=== PATIENT | female | born 1970 | race Hispanic/Latino ===

== ENCOUNTER 2022-04-06 15:13 | Inpatient (IN) | payer MEDICAID, OTHER ==
[~2022-04-06] VITALS: Ht 157.5 cm; Wt 149.1 kg
[2022-04-06] MEDS ORDERED: KETOROLAC 15MG/ML VIAL (15MG/ML) IV ONE (17:00)
[2022-04-06] MEDS ORDERED: 0.9%NACL 1000ML 1,000 ML IV ONE (17:00)
[2022-04-06] MEDS ORDERED: ONDANSETRON 4MG INJ IVP ONE (17:00)
[2022-04-06 17:03] LABS: APPEARANCE,URINE CLEAR (CLEAR); BILIRUBIN,URINE NEGATIVE (NEGATIVE); COLOR,URINE YELLOW (YELLOW); GLUCOSE, URINE (UA) NEGATIVE (NEGATIVE); KETONES,URINE NEGATIVE (NEGATIVE); LEUKOCYTE ESTERASE ,URINE 25 Leu/uL (NEGATIVE); NITRATE,URINE NEGATIVE (NEGATIVE); OCCULT BLOOD,URINE MODERATE (NEGATIVE); PROTEIN,URINE 50 mg/dL (NEGATIVE); UROBILINOGEN,URINE 0.2 mg/dL (0.2-1.0)
[2022-04-06 17:08] LABS: BACTERIA,URINE RARE /HPF (None Seen); MUCUS,URINE RARE LPF (None Seen); SQUAMOUS EPITHELIAL CELL,UR MOD /HPF (0-2)
[2022-04-06 17:09] LABS: BASOPHILS % (AUTO) 0.7 % (0.0-5.0); EOSINOPHILS % (AUTO) 1.9 % (0.0-8.0); HEMATOCRIT 31.9 % (36-48); MEAN CORPUSCULAR HEMOGLOBIN 21.3 pg (27.0-33.0); MEAN CORPUSCULAR HGB CONC 28.8 g/dL (32.0-36.0); MONOCYTES % (AUTO) 6.7 % (3.0-13.0); NEUTROPHILS % (AUTO) 64.2 % (40.0-77.0); PLATELET COUNT (AUTO) 614 K/uL (130-400); RED BLOOD CELL COUNT(AUTO) 4.31 MIL/uL (4.00-5.50); RED CELL DISTRIBUTION WIDTH 19.3 % (11.0-15.5); WHITE BLOOD COUNT (AUTO) 13.3 K/uL (4.8-10.8)
[2022-04-06 17:18] LABS: CREATININE 0.9 mg/dL (0.5-1.5); POTASSIUM 3.2 mmol/L (3.5-5.1)
[2022-04-06] MEDS ORDERED: CEFTRIAXONE 1G VIAL ONE (17:21)
[2022-04-06 17:22] LABS: ALBUMIN 3.3 g/dL (3.5-5.0)
[2022-04-06] MEDS ORDERED: CEFTRIAXONE 1G VIAL IVP ONE (17:30)
[2022-04-06 18:00] LABS: CRP QUANTITATIVE 64.5 mg/L (0.00-9.0)
[2022-04-06] MEDS ORDERED: IOHEXOL 350 MG/ML 100ML INFUS..BTL IV ONE (18:19)
[2022-04-06] MEDS ORDERED: ONDANSETRON 4MG INJ IV PRN (21:30)
[2022-04-06] MEDS ORDERED: ACETAMINOPHEN 325 MG TAB PO PRN (21:30)
[2022-04-06] MEDS ORDERED: LACTULOSE 20 GM/30 ML UDCUP PO PRN (21:30)
[2022-04-06] MEDS: CEFTRIAXONE 1G VIAL IVP SCH (21:43)
[2022-04-06] MEDS: 0.9%NACL 1000ML 1,000 ML IV SCH (21:44)
[2022-04-06] MEDS ORDERED: LIDOCAINE HCL-MPF 1% 2ML VIAL IV PRN (22:00)
[2022-04-06] MEDS ORDERED: POTASSIUM CHLORIDE 10MEQ/100ML 100 ML IV PRN (22:00)
[2022-04-06] MEDS ORDERED: POTASSIUM CHLORIDE 10% ELIXIR 20 MEQ/15 ML UDCUP PO PRN (22:00)
[2022-04-06] MEDS: KCL 20 MEQ ERTAB PO PRN (22:08)
[2022-04-06] MEDS: ACETAMINOPHEN 325 MG TAB PO PRN (22:09)
[2022-04-06 23:59] VITALS: BP 142/63
[2022-04-07] MEDS: KCL 20 MEQ ERTAB PO PRN ×2 (00:28→02:36)
[2022-04-07] MEDS ORDERED: FLU VACC QS2022-23(6MOS UP)/PF 60 MCG/0.5 ML ML IM ONE (02:30)
[2022-04-07 02:40] VITALS: BP 138/82
[2022-04-07] MEDS: ACETAMINOPHEN 325 MG TAB PO PRN (05:18)
[2022-04-07 07:49] VITALS: BP 139/74
[2022-04-07] MEDS ORDERED: GADOTERATE MEGLUMINE 10 MMOL/20 ML VIAL IV ONE (08:01)
[2022-04-07] MEDS: FAMOTIDINE 20MG TAB PO SCH ×2 (08:34→21:32)
[2022-04-07 11:06] LABS: HEMATOCRIT 31.3 % (36-48); MEAN CORPUSCULAR HGB CONC 27.8 g/dL (32.0-36.0); MEAN CORPUSCULAR VOLUME 75.6 fL (79-99); RED BLOOD CELL COUNT(AUTO) 4.14 MIL/uL (4.00-5.50); RED CELL DISTRIBUTION WIDTH 19.4 % (11.0-15.5); WHITE BLOOD COUNT (AUTO) 8.9 K/uL (4.8-10.8)
[2022-04-07 11:14] VITALS: BP 132/84
[2022-04-07] MEDS: 0.9%NACL 1000ML 1,000 ML IV SCH (11:20)
[2022-04-07 11:28] LABS: CREATININE 0.8 mg/dL (0.5-1.5); POTASSIUM 3.6 mmol/L (3.5-5.1)
[2022-04-07 11:33] LABS: TOTAL PROTEIN, SERUM 7.3 g/dL (6.0-8.3)
[2022-04-07] MEDS ORDERED: HYDROMORPHONE 1 MG INJ IVP ONE (15:00)
[2022-04-07] MEDS ORDERED: HYDROMORPHONE 1 MG INJ IVP PRN (15:00)
[2022-04-07] MEDS: HYDROMORPHONE 1 MG INJ IVP PRN (15:52)
[2022-04-07 16:15] VITALS: BP 130/76
[2022-04-07 20:00] VITALS: BP 157/75
[2022-04-07] MEDS: CEFTRIAXONE 1G VIAL IVP SCH (21:32)
[2022-04-07 23:19] VITALS: BP 127/66
[2022-04-08 03:02] VITALS: BP 131/83
[2022-04-08] MEDS: 0.9%NACL 1000ML 1,000 ML IV SCH ×2 (03:53→18:03)
[2022-04-08 05:50] LABS: HEMATOCRIT 29.9 % (36-48); MEAN CORPUSCULAR HEMOGLOBIN 21.4 pg (27.0-33.0); MEAN CORPUSCULAR HGB CONC 28.8 g/dL (32.0-36.0); MEAN CORPUSCULAR VOLUME 74.6 fL (79-99); RED BLOOD CELL COUNT(AUTO) 4.01 MIL/uL (4.00-5.50); RED CELL DISTRIBUTION WIDTH 19.2 % (11.0-15.5); WHITE BLOOD COUNT (AUTO) 8.1 K/uL (4.8-10.8)
[2022-04-08 06:05] LABS: INR 1.06 (0.85-1.15); PROTHROMBIN TIME 11.5 SEC (9.6-11.6)
[2022-04-08 06:06] LABS: PARTIAL THROMBOPLASTIN TIME 27.7 SEC (26.3-35.5)
[2022-04-08 06:16] LABS: ALBUMIN 2.7 g/dL (3.5-5.0); BILIRUBIN,DIRECT 0.1 mg/dL (0.0-0.3); CREATININE 0.8 mg/dL (0.5-1.5); CRP QUANTITATIVE 63.9 mg/L (0.00-9.0); POTASSIUM 3.4 mmol/L (3.5-5.1); THYROID STIMULATING HORMONE 1.84 uIU/mL (0.36-3.74); TOTAL PROTEIN, SERUM 6.8 g/dL (6.0-8.3)
[2022-04-08 06:44] VITALS: BP 132/62
[2022-04-08] MEDS: FAMOTIDINE 20MG TAB PO SCH (08:31)
[2022-04-08] MEDS: HYDROMORPHONE 1 MG INJ IVP PRN ×2 (09:26→18:23)
[2022-04-08 12:00] VITALS: BP 144/74
[2022-04-08 16:00] VITALS: BP 150/67
[2022-04-08] MEDS: KCL 20 MEQ ERTAB PO PRN ×2 (16:15→18:03)
[2022-04-08] MEDS: PANTOPRAZOLE 40 MG TAB DR PO SCH (18:03)
[2022-04-08] MEDS: CEFTRIAXONE 1G VIAL IVP SCH (19:44)
[2022-04-08 20:13] VITALS: BP 146/70
[2022-04-08 23:51] VITALS: BP 153/73
[2022-04-09] MEDS: 0.9%NACL 1000ML 1,000 ML IV SCH ×2 (03:20→17:24)
[2022-04-09 04:22] VITALS: BP 144/83
[2022-04-09 07:30] VITALS: BP 134/68
[2022-04-09 09:40] LABS: RETICULOCYTE % (AUTO) 2.05 % (0.42-2.23)
[2022-04-09 10:31] LABS: % IRON SATURATION 5.6 % (22-44)
[2022-04-09] MEDS: KETOROLAC 15MG/ML VIAL (15MG/ML) IV PRN ×3 (10:45→21:41)
[2022-04-09 11:30] VITALS: BP 140/65
[2022-04-09 16:00] VITALS: BP 165/74
[2022-04-09] MEDS: PANTOPRAZOLE 40 MG TAB DR PO SCH (17:24)
[2022-04-09] MEDS: CEFTRIAXONE 1G VIAL IVP SCH (19:21)
[2022-04-09 20:00] VITALS: BP 153/73
[2022-04-10] VITALS: BP 142/63
[2022-04-10 04:00] VITALS: BP 144/73
[2022-04-10 05:15] LABS: BASOPHILS % (AUTO) 0.5 % (0.0-5.0); EOSINOPHILS % (AUTO) 2.2 % (0.0-8.0); HEMATOCRIT 29.8 % (36-48); LYMPHOCYTES % (AUTO) 20.6 % (21.0-51.0); MEAN CORPUSCULAR HEMOGLOBIN 21.1 pg (27.0-33.0); MEAN CORPUSCULAR HGB CONC 28.5 g/dL (32.0-36.0); MEAN CORPUSCULAR VOLUME 74.1 fL (79-99); MONOCYTES % (AUTO) 8.7 % (3.0-13.0); NEUTROPHILS % (AUTO) 67.7 % (40.0-77.0); PLATELET COUNT (AUTO) 475 K/uL (130-400); RED BLOOD CELL COUNT(AUTO) 4.02 MIL/uL (4.00-5.50); RED CELL DISTRIBUTION WIDTH 19.4 % (11.0-15.5); WHITE BLOOD COUNT (AUTO) 9.4 K/uL (4.8-10.8)
[2022-04-10] MEDS: 0.9%NACL 1000ML 1,000 ML IV SCH ×2 (05:27→20:48)
[2022-04-10 05:31] LABS: ALBUMIN 2.7 g/dL (3.5-5.0); CREATININE 0.8 mg/dL (0.5-1.5); POTASSIUM 3.5 mmol/L (3.5-5.1)
[2022-04-10 07:30] VITALS: BP 129/61
[2022-04-10 11:00] VITALS: BP 125/65
[2022-04-10] MEDS: KETOROLAC 15MG/ML VIAL (15MG/ML) IV PRN ×2 (12:37→20:48)
[2022-04-10 16:00] VITALS: BP 146/60
[2022-04-10] MEDS: PANTOPRAZOLE 40 MG TAB DR PO SCH (18:13)
[2022-04-10] MEDS: ACETAMINOPHEN 325 MG TAB PO PRN (18:34)
[2022-04-10 20:20] VITALS: BP 147/72
[2022-04-10] MEDS: CEFTRIAXONE 1G VIAL IVP SCH (20:48)
[2022-04-11] VITALS: BP 151/71
[2022-04-11 04:52] LABS: HEMATOCRIT 28.7 % (36-48); MEAN CORPUSCULAR HEMOGLOBIN 21.4 pg (27.0-33.0); MEAN CORPUSCULAR HGB CONC 28.9 g/dL (32.0-36.0); RED BLOOD CELL COUNT(AUTO) 3.88 MIL/uL (4.00-5.50); RED CELL DISTRIBUTION WIDTH 19.4 % (11.0-15.5); WHITE BLOOD COUNT (AUTO) 8.7 K/uL (4.8-10.8)
[2022-04-11 05:07] LABS: CREATININE 0.9 mg/dL (0.5-1.5); POTASSIUM 3.4 mmol/L (3.5-5.1)
[2022-04-11] MEDS: KCL 20 MEQ ERTAB PO PRN ×2 (05:49→09:07)
[2022-04-11 06:00] VITALS: BP 126/56
[2022-04-11 07:30] VITALS: BP 150/69
[2022-04-11] MEDS: 0.9%NACL 1000ML 1,000 ML IV SCH ×2 (08:40→20:49)
[2022-04-11] MEDS: HYDROMORPHONE 0.5 MG SYG (0.5MG/0.5ML) IVP PRN (09:08)
[2022-04-11 11:00] VITALS: BP 148/66
[2022-04-11 16:00] VITALS: BP 148/78
[2022-04-11] MEDS: PANTOPRAZOLE 40 MG TAB DR PO SCH (18:00)
[2022-04-11 20:00] VITALS: BP 143/78
[2022-04-11] MEDS: CEFTRIAXONE 1G VIAL IVP SCH (20:47)
[2022-04-12] VITALS (14 sets, daily range): BP systolic 134–162; BP diastolic 64–87
[2022-04-12 08:07] LABS: CREATININE 0.9 mg/dL (0.5-1.5); POTASSIUM 3.2 mmol/L (3.5-5.1)
[2022-04-12] MEDS: KETOROLAC 15MG/ML VIAL (15MG/ML) IV PRN ×2 (08:45→17:33)
[2022-04-12] MEDS ORDERED: FENTANYL CITRATE PF 50 MCG/1 ML 2ML VIAL ONE (10:52)
[2022-04-12] MEDS ORDERED: MIDAZOLAM HCL 1 MG/ML 2ML VIAL ONE (11:11)
[2022-04-12] MEDS: PANTOPRAZOLE 40 MG TAB DR PO SCH (17:26)
[2022-04-12] MEDS: KCL 20 MEQ ERTAB PO PRN ×2 (17:33→18:53)
[2022-04-12] MEDS: 0.9%NACL 1000ML 1,000 ML IV SCH (18:53)
[2022-04-12] MEDS: CEFTRIAXONE 1G VIAL IVP SCH (20:43)
[2022-04-12] MEDS: HYDROMORPHONE 0.5 MG SYG (0.5MG/0.5ML) IVP PRN (21:01)
[2022-04-13] MEDS: KETOROLAC 15MG/ML VIAL (15MG/ML) IV PRN (00:39)
[2022-04-13] MEDS: 0.9%NACL 1000ML 1,000 ML IV SCH ×2 (00:40→14:04)
[2022-04-13] MEDS: HYDROMORPHONE 0.5 MG SYG (0.5MG/0.5ML) IVP PRN ×4 (02:30→22:47)
[2022-04-13 04:25] VITALS: BP 135/74
[2022-04-13 05:32] LABS: CREATININE 0.9 mg/dL (0.5-1.5); POTASSIUM 3.8 mmol/L (3.5-5.1)
[2022-04-13 08:00] VITALS: BP 165/102
[2022-04-13] MEDS ORDERED: ACET-2079 PO (08:37)
[2022-04-13 12:00] VITALS: BP 151/72
[2022-04-13 16:00] VITALS: BP 163/97
[2022-04-13 20:58] VITALS: BP 148/60
[2022-04-13] MEDS: PANTOPRAZOLE 40 MG TAB DR PO SCH (21:03)
[2022-04-13] MEDS: CEFTRIAXONE 1G VIAL IVP SCH (21:53)
[2022-04-14 00:15] VITALS: BP 139/77
[2022-04-14 03:57] VITALS: BP 152/66
[2022-04-14] MEDS: 0.9%NACL 1000ML 1,000 ML IV SCH (05:10)
[2022-04-14 08:00] VITALS: BP 158/78
== END 2022-04-14 11:20 | disposition home or self-care (01) | DRG 687 ==
LOC: EDH 15:13 → EDHIP 15:14 → WSH 23:40 → 3BH 04-08 09:53
PROVIDERS: ADMIT Hospitalist; ATTEND Hospitalist
PROC: 0TB03ZX Excision of Right Kidney, Percutaneous Approach, Diagnostic (ICD-10-PCS; principal; 2022-04-12)
DX: C64.9 Malignant neoplasm of unspecified kidney, except renal pelvis (principal); C78.00 Secondary malignant neoplasm of unspecified lung; I82.3 Embolism and thrombosis of renal vein; N39.0 Urinary tract infection, site not specified; Z68.43 Body mass index [BMI] 50.0-59.9, adult; E87.6 Hypokalemia; E66.01 Morbid (severe) obesity due to excess calories; R16.0 Hepatomegaly, not elsewhere classified; D64.9 Anemia, unspecified; G47.33 Obstructive sleep apnea (adult) (pediatric); G89.29 Other chronic pain
CPT/HCPCS: 36415; 50200; 71250; 74177; 77012; 78306; 80048; 80053; 80076; 81001; 82607; 82728; 82746; 83540; 83550; 83605; 83690; 84132; 84145; 84443; 85025; 85027; 85045; 85610; 85651; 85730; 86140; 87088; 87635; 93306; 93356; 99152; A9503; C8902; G0378; J0696; J1170; J1885; J2250; J2405; J3010; J7030; Q9967

== ENCOUNTER 2022-06-01 21:40 | Emergency (ER) | payer OTHER ==
[~2022-06-01] VITALS: Ht 160 cm; Wt 117.0 kg
[~2022-06-01 21:40] MED LIST: ACET-2079 PO
[2022-06-01 23:02] LABS: BASOPHILS % (AUTO) 0.7 % (0.0-5.0); EOSINOPHILS % (AUTO) 2.7 % (0.0-8.0); HEMATOCRIT 31.9 % (36-48); LYMPHOCYTES % (AUTO) 20.9 % (21.0-51.0); MEAN CORPUSCULAR HEMOGLOBIN 21.1 pg (27.0-33.0); MEAN CORPUSCULAR HGB CONC 28.2 g/dL (32.0-36.0); MEAN CORPUSCULAR VOLUME 74.7 fL (79-99); MONOCYTES % (AUTO) 5.9 % (3.0-13.0); NEUTROPHILS % (AUTO) 69.4 % (40.0-77.0); PLATELET COUNT (AUTO) 554 K/uL (130-400); RED BLOOD CELL COUNT(AUTO) 4.27 MIL/uL (4.00-5.50); RED CELL DISTRIBUTION WIDTH 19.4 % (11.0-15.5); WHITE BLOOD COUNT (AUTO) 8.5 K/uL (4.8-10.8)
[2022-06-01 23:15] LABS: POTASSIUM 3.7 mmol/L (3.5-5.1); TOTAL PROTEIN, SERUM 8.1 g/dL (6.0-8.3)
[2022-06-01 23:21] LABS: APPEARANCE,URINE CLEAR (CLEAR); BILIRUBIN,URINE NEGATIVE (NEGATIVE); GLUCOSE, URINE (UA) NEGATIVE (NEGATIVE); KETONES,URINE NEGATIVE (NEGATIVE); LEUKOCYTE ESTERASE ,URINE 25 Leu/uL (NEGATIVE); NITRATE,URINE NEGATIVE (NEGATIVE); OCCULT BLOOD,URINE NEGATIVE (NEGATIVE); PH,URINE 6.5 (5.0-8.0); PROTEIN,URINE NEGATIVE (NEGATIVE); UROBILINOGEN,URINE 0.2 mg/dL (0.2-1.0)
[2022-06-01 23:26] LABS: COLOR,URINE YELLOW (YELLOW)
[2022-06-01 23:27] LABS: BACTERIA,URINE RARE /HPF (None Seen); RBC,URINE 0-1 /HPF (0-1); SQUAMOUS EPITHELIAL CELL,UR FEW /HPF (0-2)
[2022-06-01] MEDS ORDERED: IOHEXOL 350 MG/ML 100ML INFUS..BTL IV ONE (23:54)
[2022-06-02] MEDS ORDERED: MORPHINE 4 MG SYG IVP STA (01:40)
[2022-06-02] MEDS ORDERED: MORPHINE 2 MG SYG ONE (01:52)
[2022-06-02] MEDS ORDERED: CEPH500B PO (02:09)
[2022-06-02 02:27] VITALS: BP 149/86
== END 2022-06-02 02:31 | disposition home or self-care (01) ==
LOC: EDH 21:40
DX: N39.0 Urinary tract infection, site not specified (principal); N28.89 Other specified disorders of kidney and ureter; I10 Essential (primary) hypertension; Z98.51 Tubal ligation status
CPT/HCPCS: 99285; 74178; 80053; 85025; 81001; 36415; 96374; Q9967

== ENCOUNTER 2022-08-02 20:24 | Emergency (ER) | payer BC, OTHER ==
[~2022-08-02] VITALS: Ht 162.6 cm; Wt 103.4 kg
[~2022-08-02 20:24] MED LIST changes: +CEPH500B PO; +LACT10SO9 PO
[2022-08-02 21:29] LABS: BASOPHILS % (AUTO) 0.8 % (0.0-5.0); EOSINOPHILS % (AUTO) 19.4 % (0.0-8.0); HEMATOCRIT 39.4 % (36-48); LYMPHOCYTES % (AUTO) 21.2 % (21.0-51.0); MEAN CORPUSCULAR HEMOGLOBIN 22.8 pg (27.0-33.0); MEAN CORPUSCULAR HGB CONC 29.9 g/dL (32.0-36.0); MEAN CORPUSCULAR VOLUME 76.2 fL (79-99); MONOCYTES % (AUTO) 8.7 % (3.0-13.0); NEUTROPHILS % (AUTO) 49.6 % (40.0-77.0); PLATELET COUNT (AUTO) 346 K/uL (130-400); RED BLOOD CELL COUNT(AUTO) 5.17 MIL/uL (4.00-5.50); RED CELL DISTRIBUTION WIDTH 19.5 % (11.0-15.5); WHITE BLOOD COUNT (AUTO) 7.9 K/uL (4.8-10.8)
[2022-08-02 21:40] LABS: CARBON DIOXIDE 30 mmol/L (21-32); CHLORIDE 100 mmol/L (101-111); CREATININE 1.3 mg/dL (0.5-1.5); GLOMERULAR FILTR. RATE CALC 46 mL/min (>60); GLUCOSE,RANDOM 94 mg/dL (70-105); POTASSIUM 3.2 mmol/L (3.5-5.1); SODIUM SERUM 139 mmol/L (136-145); UREA NITROGEN, BLOOD 19 mg/dL (7-18)
[2022-08-02 21:44] LABS: ALANINE AMINOTRANSFERASE 111 U/L (12-78); ALBUMIN 3.7 g/dL (3.5-5.0); ASPARTATE AMINOTRANSFERASE 94 U/L (10-37); TOTAL PROTEIN, SERUM 7.6 g/dL (6.0-8.3)
[2022-08-02 21:45] LABS: LIPASE < 50 U/L (114-286)
[2022-08-02 21:53] LABS: APPEARANCE,URINE CLOUDY (CLEAR); BILIRUBIN,URINE NEGATIVE (NEGATIVE); COLOR,URINE YELLOW (YELLOW); GLUCOSE, URINE (UA) NEGATIVE (NEGATIVE); KETONES,URINE NEGATIVE (NEGATIVE); LEUKOCYTE ESTERASE ,URINE 500 Leu/uL (NEGATIVE); NITRATE,URINE NEGATIVE (NEGATIVE); PH,URINE 7.5 (5.0-8.0); PROTEIN,URINE 50 mg/dL (NEGATIVE); UROBILINOGEN,URINE 0.2 mg/dL (0.2-1.0)
[2022-08-02 22:02] LABS: BACTERIA,URINE FEW /HPF (None Seen); MUCUS,URINE FEW LPF (None Seen); SQUAMOUS EPITHELIAL CELL,UR MOD /HPF (0-2); WBC,URINE 26-50 /HPF (0-1); YEAST,URINE BUDDING FEW /HPF (None Seen)
[2022-08-02] MEDS ORDERED: MORPHINE 2 MG SYG IVP ONE (22:30)
[2022-08-02] MEDS ORDERED: MORPHINE 2 MG SYG IM ONE (23:00)
[2022-08-02] MEDS ORDERED: POTASSIUM BICARB/CIT AC 25 MEQ TABLET.EFF PO ONE (23:00)
[2022-08-03] MEDS ORDERED: OMEP20TA20 PO (00:58)
[2022-08-03] MEDS ORDERED: SULF1TAB42 PO (00:58)
[2022-08-03 01:15] VITALS: BP 156/87
== END 2022-08-03 01:16 | disposition home or self-care (01) ==
LOC: EDH 20:24
DX: N39.0 Urinary tract infection, site not specified (principal); R10.11 Right upper quadrant pain; K82.8 Other specified diseases of gallbladder; I10 Essential (primary) hypertension; Z79.899 Other long term (current) drug therapy
CPT/HCPCS: 36415; 74176; 76705; 80053; 81001; 83690; 84703; 85025; 87077; 87088; 87186; 96372

== ENCOUNTER 2022-11-06 16:05 | Emergency (ER) | payer BC ==
[~2022-11-06] VITALS: Ht 160 cm; Wt 98.9 kg
[~2022-11-06 16:05] MED LIST changes: +OMEP20TA20 PO; +SULF1TAB42 PO
[2022-11-06 16:07] VITALS: BP 165/76
[2022-11-06] MEDS ORDERED: ONDANSETRON 4MG INJ IV ONE (16:30)
[2022-11-06] MEDS ORDERED: MORPHINE 4 MG SYG IVP ONE (16:30)
[2022-11-06 16:37] LABS: BASOPHILS % (AUTO) 0.3 % (0.0-5.0); EOSINOPHILS % (AUTO) 1.4 % (0.0-8.0); HEMATOCRIT 40.8 % (36-48); LYMPHOCYTES % (AUTO) 16.4 % (21.0-51.0); MEAN CORPUSCULAR HEMOGLOBIN 27.1 pg (27.0-33.0); MEAN CORPUSCULAR HGB CONC 32.1 g/dL (32.0-36.0); MEAN CORPUSCULAR VOLUME 84.3 fL (79-99); MONOCYTES % (AUTO) 6.1 % (3.0-13.0); NEUTROPHILS % (AUTO) 75.4 % (40.0-77.0); PLATELET COUNT (AUTO) 223 K/uL (130-400); RED BLOOD CELL COUNT(AUTO) 4.84 MIL/uL (4.00-5.50); RED CELL DISTRIBUTION WIDTH 19.6 % (11.0-15.5); WHITE BLOOD COUNT (AUTO) 10.2 K/uL (4.8-10.8)
[2022-11-06 16:58] LABS: CREATININE 1.2 mg/dL (0.5-1.5); POTASSIUM 3.4 mmol/L (3.5-5.1)
[2022-11-06 17:04] LABS: ALBUMIN 3.6 g/dL (3.5-5.0); TOTAL PROTEIN, SERUM 7.5 g/dL (6.0-8.3)
[2022-11-06 17:30] LABS: APPEARANCE,URINE CLEAR (CLEAR); BACTERIA,URINE RARE /HPF (None Seen); BILIRUBIN,URINE NEGATIVE (NEGATIVE); COLOR,URINE YELLOW (YELLOW); GLUCOSE, URINE (UA) NEGATIVE (NEGATIVE); KETONES,URINE NEGATIVE (NEGATIVE); LEUKOCYTE ESTERASE ,URINE 75 Leu/uL (NEGATIVE); MUCUS,URINE RARE LPF (None Seen); NITRATE,URINE NEGATIVE (NEGATIVE); OCCULT BLOOD,URINE NEGATIVE (NEGATIVE); PH,URINE 6.5 (5.0-8.0); PROTEIN,URINE 200 mg/dL (NEGATIVE); SQUAMOUS EPITHELIAL CELL,UR RARE /HPF (0-2)
[2022-11-06] MEDS ORDERED: IOHEXOL 350 MG/ML 100ML INFUS..BTL IV ONE (17:30)
[2022-11-06] MEDS ORDERED: NAPR-1180 PO (18:31)
[2022-11-06] MEDS ORDERED: CYCL10TA16 PO (18:31)
== END 2022-11-06 18:46 | disposition home or self-care (01) ==
LOC: EDH 16:05
DX: S33.5XXA Sprain of ligaments of lumbar spine, initial encounter (principal); I10 Essential (primary) hypertension; Z79.899 Other long term (current) drug therapy; Z98.890 Other specified postprocedural states; W18.39XA Other fall on same level, initial encounter; Y93.89 Activity, other specified; Y92.89 Other specified places as the place of occurrence of the external cause; Y99.8 Other external cause status
CPT/HCPCS: 99284; 74177; 96374; 96375; 80053; 85025; 87088; 81001; 36415; J2405; J2270; Q9967

== ENCOUNTER 2023-02-26 20:17 | Inpatient (IN) | payer BC, MEDICAID ==
[~2023-02-26] VITALS: Ht 160 cm; Wt 97.6 kg
[~2023-02-26 20:17] MED LIST changes: +CYCL10TA16 PO; +NAPR-1180 PO
[2023-02-26] MEDS ORDERED: ACETAMINOPHEN 500 MG TABLET ONE (21:37)
[2023-02-26 21:55] VITALS: TEMP 100.8
[2023-02-26 21:59] LABS: BASOPHILS # (AUTO) 0.07 K/uL (0.00-0.20); BASOPHILS % (AUTO) 1.1 % (0.0-5.0); EOSINOPHILS # (AUTO) 0.23 K/uL (0.00-0.70); EOSINOPHILS % (AUTO) 3.7 % (0.0-8.0); HEMATOCRIT 33.5 % (36-48); IMMATURE GRANULOCYTE ABSOLUTE 0.02 K/uL (0-1); LYMPHOCYTES # (AUTO) 1.8 K/uL (1.0-4.8); LYMPHOCYTES % (AUTO) 29.8 % (21.0-51.0); MEAN CORPUSCULAR HGB CONC 33.7 g/dL (32.0-36.0); MEAN CORPUSCULAR VOLUME 94.9 fL (79-99); MONOCYTES # (AUTO) 0.8 K/uL (0.1-1.0); MONOCYTES % (AUTO) 12.1 % (3.0-13.0); NEUTROPHILS # (AUTO) 3.3 K/uL (1.8-7.7); PLATELET COUNT (AUTO) 264 K/uL (130-400); RED BLOOD CELL COUNT(AUTO) 3.53 MIL/uL (4.00-5.50); RED CELL DISTRIBUTION WIDTH 14.9 % (11.0-15.5); WHITE BLOOD COUNT (AUTO) 6.2 K/uL (4.8-10.8)
[2023-02-26] MEDS ORDERED: ACETAMINOPHEN 500 MG TABLET PO ONE (22:00)
[2023-02-26 22:10] LABS: ADD UA MICROSCOPIC YES; APPEARANCE,URINE CLEAR (CLEAR); BILIRUBIN,URINE NEGATIVE (NEGATIVE); COLOR,URINE LIGHT-YELLOW (YELLOW); GLUCOSE, URINE (UA) NEGATIVE (NEGATIVE); KETONES,URINE NEGATIVE (NEGATIVE); LEUKOCYTE ESTERASE ,URINE 25 Leu/uL (NEGATIVE); NITRATE,URINE NEGATIVE (NEGATIVE); OCCULT BLOOD,URINE NEGATIVE (NEGATIVE); PROTEIN,URINE NEGATIVE (NEGATIVE); UROBILINOGEN,URINE 0.2 mg/dL (0.2-1.0)
[2023-02-26 22:13] LABS: CREATININE 1.1 mg/dL (0.5-1.5); INR 1.05 (0.85-1.15); POTASSIUM 3.2 mmol/L (3.5-5.1); PROTHROMBIN TIME 12.1 SEC (9.6-11.6)
[2023-02-26 22:13] LABS: BACTERIA,URINE MOD /HPF (None Seen); MUCUS,URINE RARE LPF (None Seen); RBC,URINE 0-1 /HPF (0-1); SQUAMOUS EPITHELIAL CELL,UR RARE /HPF (0-2)
[2023-02-26 22:14] LABS: PARTIAL THROMBOPLASTIN TIME 28.5 SEC (26.3-35.5)
[2023-02-26 22:15] LABS: SARS-CoV-2, RNA, NAAT NEGATIVE SARS CoV-2 (NEGATIVE)
[2023-02-26 22:17] LABS: B-TYPE NATRIURETIC PEPTIDE < 5 pg/mL (0-100)
[2023-02-26 22:18] LABS: AMPHET/METH SCREEN,URINE NEGATIVE (NEGATIVE); BARBITURATE SCREEN, URINE NEGATIVE (NEGATIVE); BENZODIAZEPINES SCREEN,URINE NEGATIVE (NEGATIVE); CANNABINOID SCREEN,URINE NEGATIVE (NEGATIVE); COCAINE SCREEN,URINE NEGATIVE (NEGATIVE); OPIATE SCREEN,URINE NEGATIVE (NEGATIVE); PHENCYCLIDINE SCREEN,URINE NEGATIVE (NEGATIVE)
[2023-02-26 22:20] LABS: INFLUENZA TYPE A Negative For Type A (NEGATIVE); INFLUENZA TYPE B Negative For Type B (NEGATIVE)
[2023-02-26 22:22] LABS: ALBUMIN 3.1 g/dL (3.5-5.0); BILIRUBIN,TOTAL 1.4 mg/dL (0.2-1.0); TOTAL PROTEIN, SERUM 6.5 g/dL (6.0-8.3)
[2023-02-26] MEDS ORDERED: CEFTRIAXONE 1G VIAL IVPB SCH (22:30)
[2023-02-27] MEDS ORDERED: ONDANSETRON 4MG INJ IVP ONE
[2023-02-27] MEDS ORDERED: MORPHINE 2 MG SYG IVP ONE
[2023-02-27 06:59] LABS: BASOPHILS # (AUTO) 0.04 K/uL (0.00-0.20); BASOPHILS % (AUTO) 0.7 % (0.0-5.0); EOSINOPHILS # (AUTO) 0.26 K/uL (0.00-0.70); EOSINOPHILS % (AUTO) 4.8 % (0.0-8.0); HEMATOCRIT 30.6 % (36-48); IMMATURE GRANULOCYTE ABSOLUTE 0.02 K/uL (0-1); LYMPHOCYTES # (AUTO) 1.7 K/uL (1.0-4.8); MEAN CORPUSCULAR HEMOGLOBIN 31.7 pg (27.0-33.0); MEAN CORPUSCULAR HGB CONC 33.7 g/dL (32.0-36.0); MEAN CORPUSCULAR VOLUME 94.2 fL (79-99); MONOCYTES # (AUTO) 0.6 K/uL (0.1-1.0); MONOCYTES % (AUTO) 11.8 % (3.0-13.0); NEUTROPHILS # (AUTO) 2.7 K/uL (1.8-7.7); NEUTROPHILS % (AUTO) 50.3 % (40.0-77.0); PLATELET COUNT (AUTO) 249 K/uL (130-400); RED BLOOD CELL COUNT(AUTO) 3.25 MIL/uL (4.00-5.50); RED CELL DISTRIBUTION WIDTH 14.6 % (11.0-15.5); WHITE BLOOD COUNT (AUTO) 5.4 K/uL (4.8-10.8)
[2023-02-27 07:06] LABS: ALBUMIN 2.9 g/dL (3.5-5.0); BILIRUBIN,TOTAL 1.3 mg/dL (0.2-1.0); POTASSIUM 3.3 mmol/L (3.5-5.1); TOTAL PROTEIN, SERUM 5.9 g/dL (6.0-8.3)
[2023-02-27] MEDS: HYDROMORPHONE 0.5 MG SYG (0.5MG/0.5ML) IVP PRN ×2 (08:34→19:53)
[2023-02-27] MEDS: HYDROCODONE/ACETAMINOPHEN 5/325 MG TAB PO PRN (13:01)
[2023-02-27] MEDS ORDERED: CHOL500062 PO (14:27)
[2023-02-27] MEDS ORDERED: AMLO-257 PO (14:27)
[2023-02-27] MEDS ORDERED: LEVO75CA5 PO (14:27)
[2023-02-27] MEDS ORDERED: PROM12.513 PO (14:27)
[2023-02-27] MEDS ORDERED: IBUP-2482 PO (14:27)
[2023-02-27] MEDS ORDERED: ALBU2.5V2 IH (14:27)
[2023-02-27] MEDS ORDERED: ENAL-89 PO (14:27)
[2023-02-27] MEDS ORDERED: DOCU100C33 PO (14:27)
[2023-02-27] MEDS ORDERED: FAMO20TA8 PO (14:27)
[2023-02-27] MEDS ORDERED: METH-811 PO (14:27)
[2023-02-27] MEDS ORDERED: ACET325C6 PO (14:27)
[2023-02-27] MEDS ORDERED: FURO20TA4 PO (14:27)
[2023-02-27] MEDS ORDERED: LINE600T11 PO (14:27)
[2023-02-27] MEDS ORDERED: GUAI237L97 PO (14:27)
[2023-02-27] MEDS ORDERED: ROSU5TAB12 PO (14:27)
[2023-02-27] MEDS ORDERED: CEFE2FRO IV (14:27)
[2023-02-27] MEDS ORDERED: MELO-106 PO (14:27)
[2023-02-27] MEDS ORDERED: LORA10TA7 PO (14:27)
[2023-02-27] MEDS: 1/2 NS 1000ML 1,000 ML IV SCH (16:20)
[2023-02-27 17:15] VITALS: BP 104/66; PULSE 88; RESP 18
[2023-02-27 19:00] VITALS: O2SAT 97
[2023-02-27 19:30] VITALS: BP 104/61; PULSE 80; RESP 20
[2023-02-27 19:50] VITALS: O2SAT 100
[2023-02-27] MEDS: CEFTRIAXONE 1G VIAL IVPB SCH (19:52)
[2023-02-27 23:44] VITALS: BP 126/62; PULSE 87; RESP 20
[2023-02-28] VITALS (7 sets, daily range): BP systolic 94–128; BP diastolic 50–73; PULSE 85–96; RESP 18–20; O2SAT 97–100
[2023-02-28] MEDS: HYDROCODONE/ACETAMINOPHEN 5/325 MG TAB PO PRN ×2 (01:08→16:01)
[2023-02-28] MEDS: 1/2 NS 1000ML 1,000 ML IV SCH ×3 (02:43→22:30)
[2023-02-28] MEDS: HYDROMORPHONE 0.5 MG SYG (0.5MG/0.5ML) IVP PRN ×2 (04:27→20:46)
[2023-02-28 05:05] LABS: BASOPHILS # (AUTO) 0.03 K/uL (0.00-0.20); BASOPHILS % (AUTO) 0.6 % (0.0-5.0); EOSINOPHILS # (AUTO) 0.19 K/uL (0.00-0.70); HEMATOCRIT 32.4 % (36-48); IMMATURE GRANULOCYTE ABSOLUTE 0.01 K/uL (0-1); LYMPHOCYTES # (AUTO) 1.5 K/uL (1.0-4.8); LYMPHOCYTES % (AUTO) 31.3 % (21.0-51.0); MEAN CORPUSCULAR HEMOGLOBIN 31.7 pg (27.0-33.0); MEAN CORPUSCULAR HGB CONC 32.7 g/dL (32.0-36.0); MONOCYTES # (AUTO) 0.5 K/uL (0.1-1.0); MONOCYTES % (AUTO) 9.5 % (3.0-13.0); NEUTROPHILS # (AUTO) 2.6 K/uL (1.8-7.7); NEUTROPHILS % (AUTO) 54.4 % (40.0-77.0); PLATELET COUNT (AUTO) 269 K/uL (130-400); RED BLOOD CELL COUNT(AUTO) 3.34 MIL/uL (4.00-5.50); RED CELL DISTRIBUTION WIDTH 14.6 % (11.0-15.5); WHITE BLOOD COUNT (AUTO) 4.7 K/uL (4.8-10.8)
[2023-02-28 05:37] LABS: ALBUMIN 2.9 g/dL (3.5-5.0); BILIRUBIN,TOTAL 0.8 mg/dL (0.2-1.0); CREATININE 0.9 mg/dL (0.5-1.5); THYROID STIMULATING HORMONE 0.63 uIU/mL (0.36-3.74); TOTAL PROTEIN, SERUM 6.3 g/dL (6.0-8.3); URIC ACID 6.7 mg/dL (2.6-7.2)
[2023-02-28 05:40] LABS: POTASSIUM 2.9 mmol/L (3.5-5.1)
[2023-02-28] MEDS: KCL 20 MEQ ERTAB PO PRN ×5 (06:58→20:45)
[2023-02-28] MEDS ORDERED: POTASSIUM CHLORIDE 20MEQ/100ML 100 ML IV PRN (07:00)
[2023-02-28] MEDS ORDERED: POTASSIUM CHLORIDE 10% ELIXIR 20 MEQ/15 ML UDCUP PO PRN (07:00)
[2023-02-28] MEDS: Vitamin B Complex/Vit C/Folic Acid PO SCH (08:22)
[2023-02-28 13:58] LABS: CREATININE 0.8 mg/dL (0.5-1.5); POTASSIUM 3.3 mmol/L (3.5-5.1)
[2023-02-28] MEDS: CEFTRIAXONE 1G VIAL IVPB SCH (20:45)
[2023-03-01] VITALS: BP 98/65; PULSE 78; RESP 18
[2023-03-01] MEDS: KCL 20 MEQ ERTAB PO PRN (01:16)
[2023-03-01 04:04] VITALS: BP 113/81; PULSE 89; RESP 18
[2023-03-01] MEDS: HYDROMORPHONE 0.5 MG SYG (0.5MG/0.5ML) IVP PRN (04:23)
[2023-03-01] MEDS: HYDROCODONE/ACETAMINOPHEN 5/325 MG TAB PO PRN (06:24)
[2023-03-01] MEDS ORDERED: LACTULOSE 20 GM/30 ML UDCUP PO PRN (07:00)
[2023-03-01 07:48] VITALS: O2SAT 97
[2023-03-01 08:00] VITALS: BP 121/82; PULSE 93; RESP 18
[2023-03-01] MEDS: Vitamin B Complex/Vit C/Folic Acid PO SCH (08:26)
[2023-03-01 11:48] VITALS: BP 111/73; PULSE 87; RESP 18
[2023-03-01 16:00] VITALS: BP 120/90; PULSE 86; RESP 18
== END 2023-03-01 18:00 | disposition home or self-care (01) | DRG 690 ==
LOC: EDH 20:17 → EDHIP 22:44 → 3DH 02-27 17:00
PROVIDERS: ADMIT Internal Medicine; ATTEND Internal Medicine
DX: N39.0 Urinary tract infection, site not specified (principal); C64.9 Malignant neoplasm of unspecified kidney, except renal pelvis; E66.01 Morbid (severe) obesity due to excess calories; Z20.822 Contact with and (suspected) exposure to COVID-19; I11.0 Hypertensive heart disease with heart failure; I50.9 Heart failure, unspecified; E78.00 Pure hypercholesterolemia, unspecified; Z80.1 Family history of malignant neoplasm of trachea, bronchus and lung; Z80.51 Family history of malignant neoplasm of kidney; Z83.3 Family history of diabetes mellitus; Z85.528 Personal history of other malignant neoplasm of kidney; Z68.38 Body mass index [BMI] 38.0-38.9, adult
CPT/HCPCS: 36415; 71045; 72110; 73030; 80048; 80053; 80305; 81001; 83605; 83880; 84100; 84443; 84484; 84550; 85025; 85610; 85730; 87040; 87635; 87804; 93005; 93306; 93356; 99291; C9803; G0378; J0696; J1170; J2270; J2405; A4600

== ENCOUNTER 2023-04-21 21:26 | Emergency (ER) | payer BC, MEDICAID ==
[~2023-04-21] VITALS: Ht 160 cm; Wt 88.0 kg
[2023-04-21 21:53] LABS: BASOPHILS # (AUTO) 0.03 K/uL (0.00-0.20); BASOPHILS % (AUTO) 0.6 % (0.0-5.0); EOSINOPHILS # (AUTO) 0.32 K/uL (0.00-0.70); EOSINOPHILS % (AUTO) 6.6 % (0.0-8.0); HEMATOCRIT 40.3 % (36-48); IMMATURE GRANULOCYTE ABSOLUTE 0.01 K/uL (0-1); LYMPHOCYTES # (AUTO) 1.9 K/uL (1.0-4.8); MEAN CORPUSCULAR HEMOGLOBIN 31.9 pg (27.0-33.0); MEAN CORPUSCULAR HGB CONC 33.7 g/dL (32.0-36.0); MEAN CORPUSCULAR VOLUME 94.6 fL (79-99); MONOCYTES # (AUTO) 0.5 K/uL (0.1-1.0); MONOCYTES % (AUTO) 9.2 % (3.0-13.0); NEUTROPHILS # (AUTO) 2.2 K/uL (1.8-7.7); NEUTROPHILS % (AUTO) 45.4 % (40.0-77.0); PLATELET COUNT (AUTO) 175 K/uL (130-400); RED BLOOD CELL COUNT(AUTO) 4.26 MIL/uL (4.00-5.50); RED CELL DISTRIBUTION WIDTH 18.1 % (11.0-15.5); WHITE BLOOD COUNT (AUTO) 4.9 K/uL (4.8-10.8)
[2023-04-21 22:09] LABS: CREATININE 1.6 mg/dL (0.5-1.5); POTASSIUM 3.7 mmol/L (3.5-5.1)
[2023-04-21 22:15] LABS: ALBUMIN 3.3 g/dL (3.5-5.0); BILIRUBIN,TOTAL 8.3 mg/dL (0.2-1.0); MAGNESIUM 1.8 mg/dL (1.80-2.40); TOTAL PROTEIN, SERUM 6.8 g/dL (6.0-8.3)
[2023-04-21 22:55] LABS: APPEARANCE,URINE CLOUDY (CLEAR); BILIRUBIN,URINE 4 mg/dL (NEGATIVE); COLOR,URINE DARK-YELLOW (YELLOW); GLUCOSE, URINE (UA) 30 mg/dL (NEGATIVE); KETONES,URINE 20 mg/dL (NEGATIVE); LEUKOCYTE ESTERASE ,URINE 250 Leu/uL (NEGATIVE); NITRATE,URINE NEGATIVE (NEGATIVE); OCCULT BLOOD,URINE SMALL (NEGATIVE); PROTEIN,URINE 600 mg/dL (NEGATIVE)
[2023-04-21 22:59] LABS: ADD UA MICROSCOPIC YES
[2023-04-21 23:06] LABS: BACTERIA,URINE MOD /HPF (None Seen); MUCUS,URINE RARE LPF (None Seen); SQUAMOUS EPITHELIAL CELL,UR MOD /HPF (0-2); WBC CLUMP FEW /HPF (0-1); WBC,URINE 26-50 /HPF (0-1)
[2023-04-22] MEDS ORDERED: TAMS-1 PO (05:45)
[2023-04-22] MEDS ORDERED: ONDA-104 PO (05:45)
[2023-04-22] MEDS ORDERED: IBUP-1493 PO (05:45)
[2023-04-22] MEDS ORDERED: ONDANSETRON 4MG INJ ONE (05:48)
[2023-04-22] MEDS ORDERED: KETOROLAC 30MG VIAL (30MG/ML) ONE (05:49)
[2023-04-22] MEDS ORDERED: MORPHINE 2 MG SYG ONE (05:49)
[2023-04-22 05:54] VITALS: BP 130/82; PULSE 85; RESP 18; O2SAT 100
[2023-04-22] MEDS ORDERED: MORPHINE 2 MG SYG IVP ONE (06:00)
[2023-04-22] MEDS ORDERED: ONDANSETRON 4MG INJ IVP ONE (06:00)
[2023-04-22] MEDS ORDERED: KETOROLAC 30MG VIAL (30MG/ML) IVP ONE (06:00)
== END 2023-04-22 06:41 | disposition home or self-care (01) ==
LOC: EDH 21:26
DX: N20.0 Calculus of kidney (principal); K80.20 Calculus of gallbladder without cholecystitis without obstruction; E78.00 Pure hypercholesterolemia, unspecified; I10 Essential (primary) hypertension; Z79.1 Long term (current) use of non-steroidal anti-inflammatories (NSAID)
CPT/HCPCS: 99284; 96374; 71045; 96375; 82550; 83735; 84484; 80053; 85025; 87088; 82948; 81001; 36415; 74018; 93005; 74176; J2270; J2405; J1885

== ENCOUNTER 2024-05-28 20:46 | Emergency (ER) | payer BC ==
[~2024-05-28] VITALS: Ht 157.5 cm; Wt 50.3 kg
[~2024-05-28 20:46] MED LIST changes: -ACET-2079 PO; +AMLO-258 PO; -CEPH500B PO; +CYCL-309 PO; -CYCL10TA16 PO; +HYDR-3421 PO; +HYDR-4060 PO; -LACT10SO9 PO; +LEVO150T11 PO; -NAPR-1180 PO; -OMEP20TA20 PO; -SULF1TAB42 PO
--- NOTE | 2024-05-28 21:22 | ERN ---
General Chief Complaint: Shortness of Breath Stated Complaint: C/O SOB ONSET TONIGHT Time Seen by MD: 20:51 Source: patient, family History of Present Illness Initial Comments Patient is a 53-year-old female coming in to be evaluated for shortness of b reath. Patient states that she has a history of stage IV kidney cancer and has been receiving chemotherapy. She also states that she felt short of breath earlier today as well as last week was evaluated another ER and states that was advised to come back if anything change. She was a today she started feeling less short of breath so decided to come in. Allergies: Coded Allergies: No Known Drug Allergies (Unverified Allergy, Unknown, 04/06/22) Home Meds Reported Medications Hydroxyzine HCl (Hydroxyzine HCl) 25 Mg Tablet, 1 TAB PO TID PRN for ITCHING 03/05/24 Levothyroxine Sodium (Levothyroxine Sodium) 150 Mcg Tablet, 1 TAB PO DAILY 03/05/24 Cyclobenzaprine HCl (Cyclobenzaprine HCl) 10 Mg Tablet, 1 TAB PO HSPRN PRN for MUSCLE SPASMS 03/05/24 Amlodipine Besylate (Amlodipine Besylate) 10 Mg Tablet, 1 TAB PO DAILY 03/05/24 Hydrocodone/Acetaminophen (Hydrocodon-Acetaminophen 5-325) 5 Mg-325 Mg Tablet, 1 TAB PO Q4HPRN PRN for PAIN 03/05/24 Past Medical History Past Medical History: Hypertension, Other Medical History Other: HX OF RT KIDNEY CA Past Surgical History: None Surgical History Other: TUBAL LIGATION Family History Family History: Negative Social History Social History: Negative, Lives with family Female( History) History: Not Applicable ROS Dictation CONSTITUTIONAL: No chills, no fever, no weakness, no diaphoresis, no malaise. HEAD/FACE: No signs of trauma. EENT: No eye pain, no blurred vision, no tearing, no double vision, no ear pain, no ear discharge, no nose pain, no nasal congestion, no throat pain, no throat swelling, no mouth pain. RESPIRATORY: No cough, no orthopnea, no SOB, no stridor, no wheezing. CARDIOVASCULAR: No chest pain, no edema, no palpitations, no syncope. GASTROINTESTINAL/ABDOMINAL: No abdominal pain, no constipation, no diarrhea, no nausea, no vomiting. GENITOURINARY: No abnormal discharge, no dysuria, no frequent urination, no hematuria. No complaints of pain in the genitals. MUSCULOSKELETAL: No back pain, no gout, no joint pain, no joint swelling, no muscle pain, no muscle stiffness, no neck pain. INTEGUMENTARY: No change in color, no change in hair/nails, no dryness, no lesion, no lumps, no rash. NEUROLOGICAL/PSYCH: No anxiety, not depressed, no emotional problem, no headache, no numbness, no pre-existing deficit, no history of seizures, no tremors, no weakness. HEMATOLOGIC/LYMPHATIC: Not anemic, no history of blood clots, no apparent bleeding, no bruising, glands not swollen. All Systems Negative, Except as Noted. Physical Exam Physical Exam Dictation VITAL SIGNS: Reviewed. GENERAL APPEARANCE: Alert, oriented x3, no acute distress, obese. HEAD AND FACE: Non-traumatic. EYES: PERRL, pink conjunctivas, eyelid no trauma, anterior chamber clear. EARS: Pinnas intact and no signs of trauma or erythema. Ear canals clear and no discharge. TMs no erythema. NOSE: No discharge, no bleeding. OROPHARYNX: Mouth normal, teeth no caries, tongue pink. Pharynx clear, no erythema. Tonsils no exudates, no abscesses noted. Mucous membrane moist. NECK: Supple, non-tender, no thyromegaly, no masses, no JVD, no bruits. BREAST: Deferred. CHEST: No tenderness, no crepitus, no paradoxical movement, no retractions. LUNGS: Clear, well-ventilated, symmetric, no rales, no wheezing, no rhonchi, no stridor, good breath sounds bilaterally. HEART: Regular rate, regular rhythm, no murmur, no gallops. VASCULAR: No peripheral edema. ABDOMEN: Soft, positive bowel sounds, nondistended, no guarding, nontender, no rebound, no masses no hepatomegaly, no splenomegaly, no Luu's sign, no hernias. RECTAL: Deferred. GENITAL: Deferred. NEUROLOGICAL: Normal speech, gross motor function intact, gross sensory function intact. MUSCULOSKELETAL: Neck nontender, full range of motion, back nontender, full range of motion. EXTREMITIES: Nontender, full range of motion. SKIN: Color pink, dry, no turgor, no rash, no lacerations, no abrasions, no contusions. LYMPHATICS: Deferred. Results Laboratory and Microbiology Lab and Micro Result Laboratory Tests Test 05/28/24 21:13 05/28/24 21:57 05/28/24 22:05 White Blood Count 5.4 K/uL (4.8-10.8) Red Blood Count 3.06 MIL/uL (4.00-5.50) L Hemoglobin 8.7 g/dL (12.0-16.0) L Hematocrit 28.3 % (36-48) L Mean Corpuscular Volume 92.5 fL (79-99) Mean Corpuscular Hemoglobin 28.4 pg (27.0-33.0) Mean Corpuscular Hemoglobin Concent 30.7 g/dL (32.0-36.0) L Red Cell Distribution Width 19.4 % (11.0-15.5) H Platelet Count 252 K/uL (130-400) Mean Platelet Volume 9.0 fL (7.5-10.5) Immature Granulocyte % (Auto) 0.4 % (0-1) Neutrophils (%) (Auto) 83.7 % (40.0-77.0) H Lymphocytes (%) (Auto) 12.9 % (21.0-51.0) L Monocytes (%) (Auto) 3.0 % (3.0-13.0) Eosinophils (%) (Auto) 0.0 % (0.0-8.0) Basophils (%) (Auto) 0.0 % (0.0-5.0) Neutrophils # (Auto) 4.5 K/uL (1.8-7.7) Lymphocytes # (Auto) 0.7 K/uL (1.0-4.8) L Monocytes # (Auto) 0.2 K/uL (0.1-1.0) Eosinophils # (Auto) 0.00 K/uL (0.00-0.70) Basophils # (Auto) 0.00 K/uL (0.00-0.20) Absolute Immature Granulocyte (auto 0.02 K/uL (0-1) Nucleated Red Blood Cells 0.0 % (0.0-0.19) Red Blood Cell Morphology See comments Prothrombin Time 14.5 SEC (9.6-11.6) H Prothromb Time International Ratio 1.33 (0.85-1.15) H Activated Partial Thromboplast Time 40.4 SEC (26.3-35.5) H Sodium Level 128 mmol/L (136-145) L Potassium Level 4.2 mmol/L (3.5-5.1) Chloride Level 94 mmol/L (101-111) L Carbon Dioxide Level 20 mmol/L (21-32) L Blood Urea Nitrogen 24 mg/dL (7-18) H Creatinine 1.1 mg/dL (0.5-1.0) H Glomerular Filtration Rate Calc 60 mL/min (>90) Random Glucose 152 mg/dL (70-105) H Total Calcium 8.3 mg/dL (8.5-10.1) L Magnesium Level 1.90 mg/dL (1.80-2.40) Total Creatine Kinase 15 U/L (21-232) #L Troponin I High Sensitivity < 4 ng/L (4-50) L B-Type Natriuretic Peptide 122 pg/mL (0-100) H Triglycerides Level 90 mg/dL (30-200) Cholesterol Level 131 mg/dL (<200) LDL Cholesterol 92 mg/dL (0-99) HDL Cholesterol 19 mg/dL (35-85) L Influenza Type A Antigen Negative For Type A Influenza Type B Antigen Negative For Type B SARS-CoV-2, RNA, NAAT NEGATIVE SARS CoV-2 Urine Color LIGHT-YELLOW (YELLOW) Urine Appearance CLOUDY (CLEAR) H Urine pH 5.5 (5.0-8.0) Urine Specific [place] 1.007 (1.001-1.031) Urine Protein NEGATIVE mg/dL (NEGATIVE) Urine Glucose (UA) NEGATIVE mg/dL (NEGATIVE) Urine Ketones NEGATIVE mg/dL (NEGATIVE) Urine Occult Blood NEGATIVE (NEGATIVE) Urine Nitrate NEGATIVE (NEGATIVE) Urine Bilirubin NEGATIVE mg/dL (NEGATIVE) Urine Urobilinogen 0.2 mg/dL (0.2-1.0) Urine Leukocyte Esterase 75 Dorie/uL (NEGATIVE) H Urine RBC 2-5 /HPF (0-1) H Urine WBC 6-10 /HPF (0-1) H Urine Squamous Epithelial Cells Many /HPF (0-2) H Urine Bacteria None Seen /HPF (None Seen) Labs Reviewed?: Yes EKG/XRAY/US/CT/MRI X-RAY Comment [address] [place] [address] [id number] IMAGING REPORT Signed PATIENT: JUAN BLEVINS MR#: [id number] : 1970 SEX: F AGE: 53 LOCATION: ED ORDER 20 STATUS: REG ER REPORT#: [id number] SERVICE 18 REASON: sob ORDERING PHYSICIAN: JUANCARLOS GAMBINO MD PROCEDURE: CXR1VW - CHEST 1VW CHEST 1VW CLINICAL HISTORY: sob COMPARISON: 03/04/2024 TECHNIQUE: Single view of the chest was obtained. FINDINGS: Lungs are clear. The cardiac size and mediastinum are unremarkable. The bony structures are within normal limits. IMPRESSION: No acute cardiopulmonary process identified. DICTATED BY: DONNA THOMAS DO DATE: 05/28/242202 ELECTRONICALLY SIGNED BY: DONNA THOMAS DO DATE: 05/28/242205 CT Scan Comment [address] [id number] IMAGING REPORT Signed PATIENT: JUAN BLEVINS MR#: [id number] : 1970 SEX: F AGE: 53 LOCATION: [facility] ORDER [id number] STATUS: REG ER REPORT#: [id number] SERVICE 233 REASON: RULE OUT PE ORDERING PHYSICIAN: JUANCARLOS GAMBINO MD PROCEDURE: CTA CHEST - CT ANGIO CHEST CT ANGIO CHEST HISTORY: Pulmonary embolism COMPARISON: 04/07/2022 TECHNIQUE: CT angiography of the chest was performed. The study was performed using angiographic technique with maximum intensity projection reconstruction images. Patient was given 75 cc of Omnipaque through intravenous route. FINDINGS: No CT evidence of filling defect is seen to suggest pulmonary embolus. No CT evidence of aortic dissection is seen. Bilateral pulmonary nodules are seen with the largest measuring 11 mm in bilateral lower lobes. Findings are suggestive of lung metastases. There are hilar and mediastinal adenopathy with the largest lymph node in the subcarinal region measuring 3.4 cm. There is also enlarged lymph node in the portal venous area measuring 4.2 cm. There is large right renal mass measuring 7.4 x [address] evidence of pleural effusion or pericardial effusion is seen. The heart is enlarged. No evidence of adrenal mass is seen. Degenerative changes of the spine are noted. IMPRESSION: 1. No CT evidence of acute pulmonary embolus is seen. CT was performed with one or more following dose reduction techniques: automated exposure control, adjustment of the mA and kv according to patient's size, or use of a iterative reconstruction technique. DICTATED BY: ELODIA DURAN MD DATE: 05/29/2440 ELECTRONICALLY SIGNED BY: ELODIA DURAN MD DATE: 05/29/2448 [facility] MDM: DIFFERENTIAL DIAGNOSIS: SHORTNESS OF BREATH, GENERALIZED WEAKNESS, UTI, HISTORY OF STAGE IV MALIGNANCY PATIENT IS A 52-YEAR-OLD FEMALE COMING IN TO BE EVALUATED FOR SHORTNESS OF BREATH. PATIENT STATES THAT SHE FEELS VERY WEAK SHE DID RECEIVE CHEMOTHERAPY FOR STAGE IV KIDNEY CANCER. LABORATORY WORKUP POSITIVE FOR URINARY TRACT INFECTION CT OF THE CHEST WAS PERFORMED DUE TO HISTORY OF CANCER TO RULE OUT A PULMONARY EMBOLISM NO ACUTE FINDINGS WERE PRESENT. PATIENT WILL BE DISCHARGED WITH A DIAGNOSIS OF CHEMOTHERAPY AND URINARY TRACT INFECTION. ED Course Orders Procedure Category Date Status Time Cbc With Differential LAB 05/28/24 Complete 21:19 Prothrombin Time With LAB 05/28/24 Complete INR 21:19 B-Type Natriuretic LAB 05/28/24 Complete Peptide 21:19 Lipid Panel LAB 05/28/24 Complete 21:19 Chest 1vw RAD 05/28/24 Resulted 21:19 12 Lead Ekg Tracing- EKG 05/28/24 Logged Technical 21:19 Magnesium LAB 05/28/24 Complete 21:19 Creatine Kinase, Total LAB 05/28/24 Complete 21:19 Troponin I High LAB 05/28/24 Complete Sensitivity 21:19 Urinalysis Profile LAB 05/28/24 Complete 21:19 Partial LAB 05/28/24 Complete Thromboplastin Time 21:19 Basic Metabolic Panel LAB 05/28/24 Complete 21:19 Covid Rna Naat LAB 05/28/24 Complete 21:19 Influenza Type A & B, LAB 05/28/24 Complete Rapid 21:19 Culture Urine WALKER 05/28/24 In Process 22:[address] 05/28/24 Resulted 23:36 Iohexol (Omnipaque) PHA 05/29/24 Complete 00:21 Current Medications Medications (Trade) Dose Ordered Sig/Abdullahi Route PRN Reason Start Time Stop Time Status Last Admin Dose Admin Iohexol (Omnipaque) 75 ml STK-MED ONCE IV 05/29/24 00:21 05/29/24 00:21 DC Vital Signs Date Time Temp Pulse Resp B/P (MAP) Pulse Ox O2 Delivery O2 Flow Rate FiO2 05/28/24 23:34 96.3 68 14 96/48 98 Room Air* 0 21 05/28/24 22:09 71 14 99/53 100 Room Air* 0 21 05/28/24 20:50 92.5 66 32 92/55 100 Room Air DX & DISP Disposition: Discharge Departure Impression: Primary Impression: UTI (urinary tract infection) Additional Impression: Renal cancer Condition: Stable Scripts Cephalexin Monohydrate (Keflex) 500 Mg Cap 1 CAP PO TID for 10 Days, #30 CAP 0 Refills Prov: JUANCARLOS GAMBINO MD 05/29/24 Additional Instructions: FOLLOW-UP WITH PRIMARY CARE PROVIDER IN 1 TO 2 DAYS. TAKE MEDICATIONS DIRECTED HERE IN THE EMERGENCY ROOM. OKAY TO CONTINUE HOME MEDICATIONS UNLESS OTHERWISE DISCUSSED DURING YOUR VISIT IN THE EMERGENCY ROOM TODAY. RETURN TO YOUR NEAREST EMERGENCY ROOM IF SYMPTOMS WORSEN OR IF THERE IS NO IMPROVEMENT. CALL 911 IF YOU NEED IMMEDIATE ASSISTANCE. TAKE TYLENOL [id number] NEEDED AND IF NO CONTRAINDICATIONS ARE PRESENT. INCREASE ORAL HYDRATION. A WOUND CULTURE OR URINE CULTURE WAS ORDERED HERE IN THE EMERGENCY ROOM DEPARTMENT PLEASE FOLLOW-UP WITH PRIMARY CARE PROVIDER AND ADVISE THEM TO GET REPEAT PORTS FROM OUR FACILITY. IF YOU HAD ANY CONCHA WRAP/SPLINTS THAT WERE APPLIED HERE, PLEASE DO NOT REMOVE THEM UNTIL YOU SEE YOUR PRIMARY CARE OR SPECIALTY. REFERRALS: Referrals: LUCIANO URENA MD (PCP) Time of Disposition: 00:57 JUANCARLOS GAMBINO MD May 28, 2024 21:22
[2024-05-28 21:50] LABS: HEMATOCRIT 28.3 % (36-48); IMMATURE GRANULOCYTE ABSOLUTE 0.02 K/uL (0-1); LYMPHOCYTES # (AUTO) 0.7 K/uL (1.0-4.8); LYMPHOCYTES % (AUTO) 12.9 % (21.0-51.0); MEAN CORPUSCULAR HEMOGLOBIN 28.4 pg (27.0-33.0); MEAN CORPUSCULAR HGB CONC 30.7 g/dL (32.0-36.0); MEAN CORPUSCULAR VOLUME 92.5 fL (79-99); MONOCYTES # (AUTO) 0.2 K/uL (0.1-1.0); NEUTROPHILS # (AUTO) 4.5 K/uL (1.8-7.7); NEUTROPHILS % (AUTO) 83.7 % (40.0-77.0); PLATELET COUNT (AUTO) 252 K/uL (130-400); RED BLOOD CELL COUNT(AUTO) 3.06 MIL/uL (4.00-5.50); RED CELL DISTRIBUTION WIDTH 19.4 % (11.0-15.5); WHITE BLOOD COUNT (AUTO) 5.4 K/uL (4.8-10.8)
[2024-05-28 21:55] LABS: CREATININE 1.1 mg/dL (0.5-1.0); POTASSIUM 4.2 mmol/L (3.5-5.1)
[2024-05-28 21:57] LABS: INR 1.33 (0.85-1.15); PROTHROMBIN TIME 14.5 SEC (9.6-11.6)
[2024-05-28 21:58] LABS: PARTIAL THROMBOPLASTIN TIME 40.4 SEC (26.3-35.5)
[2024-05-28 22:04] LABS: MAGNESIUM 1.9 mg/dL (1.80-2.40)
--- NOTE | 2024-05-28 22:06 | HMCIMG ---
CHEST 1VW CLINICAL HISTORY: sob COMPARISON: 03/04/2024 TECHNIQUE: Single view of the chest was obtained. FINDINGS: Lungs are clear. The cardiac size and mediastinum are unremarkable. The bony structures are within normal limits. IMPRESSION: No acute cardiopulmonary process identified.
[2024-05-28 22:13] LABS: B-TYPE NATRIURETIC PEPTIDE 122 pg/mL (0-100)
[2024-05-28 22:32] LABS: SARS-CoV-2, RNA, NAAT NEGATIVE SARS CoV-2 (NEGATIVE)
[2024-05-28 22:37] LABS: INFLUENZA TYPE A Negative For Type A (NEGATIVE); INFLUENZA TYPE B Negative For Type B (NEGATIVE)
[2024-05-28 22:48] LABS: APPEARANCE,URINE CLOUDY (CLEAR); BILIRUBIN,URINE NEGATIVE (NEGATIVE); COLOR,URINE LIGHT-YELLOW (YELLOW); GLUCOSE, URINE (UA) NEGATIVE (NEGATIVE); KETONES,URINE NEGATIVE (NEGATIVE); LEUKOCYTE ESTERASE ,URINE 75 Leu/uL (NEGATIVE); NITRATE,URINE NEGATIVE (NEGATIVE); OCCULT BLOOD,URINE NEGATIVE (NEGATIVE); PH,URINE 5.5 (5.0-8.0); PROTEIN,URINE NEGATIVE (NEGATIVE); UROBILINOGEN,URINE 0.2 mg/dL (0.2-1.0)
[2024-05-28 22:53] LABS: ADD UA MICROSCOPIC YES
[2024-05-28 22:54] LABS: BACTERIA,URINE None Seen /HPF (None Seen); MUCUS,URINE Rare LPF (None Seen); SQUAMOUS EPITHELIAL CELL,UR Many /HPF (0-2)
[2024-05-28 23:34] VITALS: TEMP 96.3
[2024-05-29] MEDS ORDERED: IOHEXOL-350 75 ML VIAL IV ONE (00:21)
--- NOTE | 2024-05-29 00:49 | HMCIMG ---
CT ANGIO CHEST HISTORY: Pulmonary embolism COMPARISON: 04/07/2022 TECHNIQUE: CT angiography of the chest was performed. The study was performed using angiographic technique with maximum intensity projection reconstruction images. Patient was given 75 cc of Omnipaque through intravenous route. FINDINGS: No CT evidence of filling defect is seen to suggest pulmonary embolus. No CT evidence of aortic dissection is seen. Bilateral pulmonary nodules are seen with the largest measuring 11 mm in bilateral lower lobes. Findings are suggestive of lung metastases. There are hilar and mediastinal adenopathy with the largest lymph node in the subcarinal region measuring 3.4 cm. There is also enlarged lymph node in the portal venous area measuring 4.2 cm. There is large right renal mass measuring 7.4 x [address] evidence of pleural effusion or pericardial effusion is seen. The heart is enlarged. No evidence of adrenal mass is seen. Degenerative changes of the spine are noted. IMPRESSION: 1. No CT evidence of acute pulmonary embolus is seen. CT was performed with one or more following dose reduction techniques: automated exposure control, adjustment of the mA and kv according to patient's size, or use of a iterative reconstruction technique.
[2024-05-29] MEDS ORDERED: CEPH500B PO (00:58)
[2024-05-29 01:09] VITALS: BP 102/45; PULSE 74; RESP 14; O2SAT 99
== END 2024-05-29 01:30 | disposition home or self-care (01) ==
LOC: EDH 20:46
DX: N39.0 Urinary tract infection, site not specified (principal); C64.9 Malignant neoplasm of unspecified kidney, except renal pelvis; I10 Essential (primary) hypertension; I26.99 Other pulmonary embolism without acute cor pulmonale; Z20.822 Contact with and (suspected) exposure to COVID-19; Z79.890 Hormone replacement therapy; Z79.899 Other long term (current) drug therapy; Z98.51 Tubal ligation status
CPT/HCPCS: 99284; 71275; 71045; 87635; 80061; 82550; 83735; 84484; 80048; 83880; 85025; 85610; 85730; 87086; 87804 ×2; 81001; 36415; Q9967

== ENCOUNTER 2024-06-23 10:11 | Emergency (ER) | payer BC ==
[~2024-06-23] VITALS: Ht 157.5 cm; Wt 49.9 kg
--- NOTE | 2024-06-23 10:24 | ERN ---
ED Note History of Present Illness Stated Complaint: WEAKNESS, FAILURE TO THRIVE X 4 DAYS Chief Complaint: Weakness Time Seen by MD: 10:17 Dictation: PATIENT IS A 53-YEAR-OLD FEMALE HERE WITH HER SISTER WITH COMPLAINTS OF NOT EATING AND GETTING WEAKER AND WEAKER OVER THE LAST 3-4 DAYS. SISTER STATES SHE HAS STAGE IV KIDNEY CANCER AND RECEIVED CHEMOTHERAPY LAST WEEK BY , . NO FEVER NO CHILLS NO NAUSEA VARYING Allergies: Coded Allergies: No Known Drug Allergies (Unverified Allergy, Unknown, 04/06/22) Home Meds Active Scripts Nitrofurantoin Macrocrystal (Nitrofurantoin) 100 Mg Capsule, 1 CAP PO BID for 7 Days, #14 CAP 0 Refills Prov:WILLIAM WELDON RN TELEPHONIC 06/23/24 Reported Medications Hydroxyzine HCl (Hydroxyzine HCl) 25 Mg Tablet, 1 TAB PO TID PRN for ITCHING 03/05/24 Levothyroxine Sodium (Levothyroxine Sodium) 150 Mcg Tablet, 1 TAB PO DAILY 03/05/24 Cyclobenzaprine HCl (Cyclobenzaprine HCl) 10 Mg Tablet, 1 TAB PO HSPRN PRN for MUSCLE SPASMS 03/05/24 Amlodipine Besylate (Amlodipine Besylate) 10 Mg Tablet, 1 TAB PO DAILY 03/05/24 Hydrocodone/Acetaminophen (Hydrocodon-Acetaminophen 5-325) 5 Mg-325 Mg Tablet, 1 TAB PO Q4HPRN PRN for PAIN 03/05/24 Past Medical History Past Medical History: Cancer, Hypertension, Other Additional Past Medical Hx: HX OF RT KIDNEY CA, STG 4 CA Surgical History: None, BTL Surgical History Other: TUBAL LIGATION Family History: Negative Social History: Negative, Lives with family History: Not Applicable RN Note Reviewed/Agreed w/PFSH: Yes Review of System Dictation OS CONSTITUTIONAL: NEGATIVE EXCEPT FOR HPI GENERALIZED WEAKNESS HEAD/FACE: NEGATIVE EXCEPT FOR HPI EENT: NEGATIVE EXCEPT FOR HPI RESPIRATORY: NEGATIVE EXCEPT FOR HPI GASTROINTESTINAL/ABDOMINAL: NEGATIVE EXCEPT FOR HPI GENITOURINARY: NEGATIVE EXCEPT FOR HPI MUSCULOSKELETAL: NEGATIVE EXCEPT FOR HPI INTEGUMENTARY: NEGATIVE EXCEPT FOR HPI NEUROLOGICAL/PSYCH: NEGATIVE EXCEPT FOR HPI HEMATOLOGIC/LYMPHATIC: NEGATIVE EXCEPT FOR HPI ALL SYSTEMS NEGATIVE, EXCEPT NOTED ABOVE. 13 POINT REVIEW OF SYSTEMS ASSESSED AND ALL NEGATIVE EXCEPT FOR ABOVE. Initial Vital Sign VS Vital Signs Date Time Temp Pulse Resp B/P (MAP) Pulse Ox O2 Delivery O2 Flow Rate FiO2 06/23/24 10:13 98.1 113 22 95/55 99 Room Air 0 06/23/24 11:12 21 Physical Exam Dictation VITAL SIGNS REVIEWED GENERAL APPEARANCE: ALERT, ORIENTED X 3, PATIENT APPEARS CACHECTIC AND WEAK. NO SPECIFIC COMPLAINT HEAD AND FACE: NON-TRAUMATIC. EYES: PERRL, PINK CONJUNCTIVAS, EYELID NO TRAUMA, ANTERIOR CHAMBER WITH ARCUS SENILIS. EARS: PINNAS INTACT AND NO SIGNS OF TRAUMA OR ERYTHEMA EAR CANALS CLEAR AND NO D ISCHARGE TM NO ERYTHEMA NOSE: NO DISCHARGE, NO BLEEDING. OROPHARYNX: MOUTH NORMAL, TONGUE PINK, PHARYNX CLEAR,NO ERYTHEMA, TONSILS NO EXUDATES, NO ABSCESSES NOTED, MUCOUS MEMBRANE MOIST NECK: SUPPLE, NON-TENDER, NO THYROMEGALY, NO MASSES, NO JVD, NO BRUITS BREAST:DEFERRED CHEST:NO TENDERNESS, NO CREPITUS, NO PARADOXICAL MOVEMENT, NO RETRACTIONS LUNGS:CLEAR, WELL-VENTILATED, SYMMETRIC, NO RALES, NO WHEEZING, NO RHONCHI, NO STRIDOR, GOOD BREATH SOUNDS BILATERALLY HEART: REGULAR RATE, REGULAR RHYTHM, NO MURMUR, NO GALLOPS VASCULAR: NO PERIPHERAL EDEMA, ABDOMEN: SOFT, POSITIVE BOWEL SOUNDS, NONDISTENDED, NO GUARDING, NONTENDER, NO REBOUND, NO MASSES NO HEPATOMEGALY, NO SPLENOMEGALY, NO IRWIN'S SIGN, NO HERNIAS. RECTAL: DEFERRED GENITAL: DEFERRED NEUROLOGICAL: NORMAL SPEECH, 4/5 STRENGTH BILATERALLY TO ALL EXTREMITIES. MUSCULOSKELETAL: NECK NONTENDER, FULL RANGE OF MOTION, BACK NONTENDER, FULL RANGE OF MOTION, EXTREMITIES: NONTENDER, FULL RANGE OF MOTION SKIN: COLOR PINK, DRY, NO TURGOR, NO RASH, NO LACERATIONS, NO ABRASIONS, NO CONTUSIONS. LYMPHATIC: DEFERRED Results (Laboratory/Radiology) Laboratory/Radiology Laboratory Tests Test 06/23/24 11:02 06/23/24 11:06 White Blood Count 6.2 K/uL (4.8-10.8) Red Blood Count 2.76 MIL/uL (4.00-5.50) L Hemoglobin 7.9 g/dL (12.0-16.0) L Hematocrit 27.1 % (36-48) L Mean Corpuscular Volume 98.2 fL (79-99) Mean Corpuscular Hemoglobin 28.6 pg (27.0-33.0) Mean Corpuscular Hemoglobin Concent 29.2 g/dL (32.0-36.0) L Red Cell Distribution Width 20.7 % (11.0-15.5) H Platelet Count 203 K/uL (130-400) Mean Platelet Volume 8.6 fL (7.5-10.5) Immature Granulocyte % (Auto) 0.3 % (0-1) Neutrophils (%) (Auto) 72.0 % (40.0-77.0) Lymphocytes (%) (Auto) 17.3 % (21.0-51.0) L Monocytes (%) (Auto) 7.7 % (3.0-13.0) Eosinophils (%) (Auto) 1.9 % (0.0-8.0) Basophils (%) (Auto) 0.8 % (0.0-5.0) Neutrophils # (Auto) 4.5 K/uL (1.8-7.7) Lymphocytes # (Auto) 1.1 K/uL (1.0-4.8) Monocytes # (Auto) 0.5 K/uL (0.1-1.0) Eosinophils # (Auto) 0.12 K/uL (0.00-0.70) Basophils # (Auto) 0.05 K/uL (0.00-0.20) Absolute Immature Granulocyte (auto 0.02 K/uL (0-1) Nucleated Red Blood Cells 0.0 % (0.0-0.19) Red Blood Cell Morphology See comments Sodium Level 134 mmol/L (136-145) L Potassium Level 4.1 mmol/L (3.5-5.1) Chloride Level 100 mmol/L (101-111) L Carbon Dioxide Level 22 mmol/L (21-32) Blood Urea Nitrogen 18 mg/dL (7-18) Creatinine 1.2 mg/dL (0.5-1.0) H Glomerular Filtration Rate Calc 54 mL/min (>90) Random Glucose 72 mg/dL (70-105) Total Calcium 9.6 mg/dL (8.5-10.1) Lipase 6 U/L (16-77) L Urine Color YELLOW (YELLOW) Urine Appearance CLEAR (CLEAR) Urine pH 6.0 (5.0-8.0) Urine Specific [place] 1.015 (1.001-1.031) Urine Protein 50 mg/dL (NEGATIVE) H Urine Glucose (UA) NEGATIVE mg/dL (NEGATIVE) Urine Ketones 10 mg/dL (NEGATIVE) H Urine Occult Blood SMALL (NEGATIVE) H Urine Nitrate NEGATIVE (NEGATIVE) Urine Bilirubin NEGATIVE mg/dL (NEGATIVE) Urine Urobilinogen 0.2 mg/dL (0.2-1.0) Urine Leukocyte Esterase 25 Dorie/uL (NEGATIVE) H Urine RBC 11-25 /HPF (0-1) H Urine WBC 6-10 /HPF (0-1) H Urine Squamous Epithelial Cells RARE /HPF (0-2) Urine Bacteria RARE /HPF (None Seen) Labs Reviewed?: Yes ED Course ED Course Orders Procedure Category Date Status Time Cbc With Differential LAB 06/23/24 Complete 10:22 Urinalysis Profile LAB 06/23/24 Complete 10:22 0.9%Nacl 1000ml (Ns PHA 06/23/24 Complete 1000ml) 10:30 Lipase LAB 06/23/24 Complete 10:22 Basic Metabolic Panel LAB 06/23/24 Complete 10:22 Nurse Driven Sánchez INDIO 06/23/24 Complete Removal Pro 10:22 Culture Urine WALKER 06/23/24 In Process 11:24 Ceftriaxone 1g Vial PHA 06/23/24 Complete (Rocephine 1g Inj) 12:00 *Nursing CPOE 06/23/24 Transmitted Communication: 12:57 Current Medications Medications (Trade) Dose Ordered Sig/Abdullahi Route PRN Reason Start Time Stop Time Status Last Admin Dose Admin Ceftriaxone Sodium (ROCEphine 1G INJ) 1 gm ONCE ONCE IVPB 06/23/24 12:00 06/23/24 12:01 DC 06/23/24 11:59 Sodium Chloride 1,000 ml @ 0 mls/hr ONCE ONCE IV 06/23/24 10:30 06/23/24 10:31 DC 06/23/24 11:08 Vital Signs Date Time Temp Pulse Resp B/P (MAP) Pulse Ox O2 Delivery O2 Flow Rate FiO2 06/23/24 13:29 98.1 99 12 102/64 98 Room Air* 0 06/23/24 11:52 105 12 102/56 95 Room Air* 0 06/23/24 11:12 102 12 93/54 97 Room Air* 0 06/23/24 10:13 98.1 113 22 95/55 99 Room Air 0 1235, PATIENT IS HEMODYNAMICALLY IN STACKED WE WILL BE DISCHARGED HOME WITH ANTIBIOTICS FOR UTI TOLD INCREASE FLUIDS INTAKE. SEE HER PRIMARY CARE DOCTOR OR ONCOLOGIST FOR FOLLOW UP 255 SPOKE WITH PATIENT'S SISTER AT LENGTH I MADE HER AWARE THAT THE LABS ARE UNREMARKABLE FROM HER LAST VISIT THERE IS NO NEED TO ADMIT HER. SHE WISHES THE S[place]NCHE[place] CATHETER BE REMOVED, WHEN I ASKED HER ABOUT THE PROGNOSIS OF HER SISTER SHE STATES NOBODY GOES WITH HER TO THE ONCOLOGIST APPOINTMENT. I STRONGLY RECOMMENDED THEY FOLLOW UP TO FIND OUT WHAT HER PROGNOSIS IS AND WHAT THEIR RECOMMENDATIONS ARE Medical Decision Making MDM MDM: DIFFERENTIAL DIAGNOSIS: DEHYDRATION/ELECTROLYTE IMBALANCE/URINARY TRACT INFECTION/STAGE IV CANCER AND FAILURE TO THRIVE RATIONALE: TESTS CONSIDERED AND ORDERED SECONDARY TO SHARED DECISION MAKING INCLUDE: LABS/URINALYSIS PREVIOUS OUTSIDE RECORDS REVIEWED: OLD ER VISITS. RISK OF COMPLICATION AND/OR MORBIDITY OR MORTALITY OF PATIENT MANAGEMENT: NONE MEDICATIONS-PER MEDICATION RECONCILIATION NEED FOR HOSPITALIZATION: PATIENT DOES NOT MEET CRITERIA FOR HOSPITALIZATION. NO NEED FOR EMERGENCY MAJOR/MINOR SURGERY: NO THERE ARE NO SOCIAL CONCERNS WITH THIS PATIENT. PRESCRIPTION DRUG MANAGEMENT NITROFURANTOIN PRESCRIPTIONS WILL INCLUDE SYMPTOMATIC CARE PATIENT'S PRIOR EXTERNAL MEDICAL RECORDS FROM OTHER ER VISITS WERE REVIEWED BY ME INDICATED. PRIOR TESTING AND RESULTS FROM PREVIOUS VISITS WERE REVIEWED. PRIOR TESTS WERE TAKEN INTO ACCOUNT WITH MEDICAL DECISION MAKING AND RESOURCE UTILIZATION, INDEPENDENT HISTORIAN/HISTORIANS WERE USED TO OBTAIN COMPLETE MEDICAL HISTORY. I INDEPENDENTLY INTERPRETED THE TEST THAT WERE PERFORMED, RESULTS WERE REVIEWED BY ME AND CONSIDERED FINDINGS ON RADIOLOGY IF ORDERED. MEDICAL MANAGEMENT AND EXAMINATION INTERPRETATION DISCUSSIONS WERE HAD BY ME WITH OTHER QUALIFIED HEALTHCARE PROFESSIONALS INDICATED FOR THE PATIENT'S CARE. DX & DISP Disposition: Discharge Departure Impression: Primary Impression: Urinary tract infection Additional Impressions: Adult failure to thrive, Cancer cachexia Condition: Stable Scripts Nitrofurantoin Macrocrystal (Nitrofurantoin) 100 Mg Capsule 1 CAP PO BID for 7 Days, #14 CAP 0 Refills Prov: WILLIAM WELDON RN TELEPHONIC 06/23/24 Additional Instructions: FOLLOW-UP WITH PRIMARY CARE PROVIDER IN 1 TO 2 DAYS. TAKE MEDICATIONS DIRECTED HERE IN THE EMERGENCY ROOM. OKAY TO CONTINUE HOME MEDICATIONS UNLESS OTHERWISE DISCUSSED DURING YOUR VISIT IN THE EMERGENCY ROOM TODAY. RETURN TO YOUR NEAREST EMERGENCY ROOM IF SYMPTOMS WORSEN OR IF THERE IS NO IMPROVEMENT. CALL 911 IF YOU NEED IMMEDIATE ASSISTANCE. TAKE TYLENOL OR MOTRIN [id number] NEEDED AND IF NO CONTRAINDICATIONS ARE PRESENT. INCREASE ORAL HYDRATION. A WOUND CULTURE OR URINE CULTURE WAS ORDERED HERE IN THE EMERGENCY ROOM DEPARTMENT PLEASE FOLLOW-UP WITH PRIMARY CARE PROVIDER AND ADVISE THEM TO GET REPEAT PORTS FROM OUR FACILITY. IF YOU HAD ANY CONCHA WRAP/SPLINTS THAT WERE APPLIED HERE, PLEASE DO NOT REMOVE THEM UNTIL YOU SEE YOUR PRIMARY CARE OR SPECIALTY. ENCOURAGE P.O. FLUID INTAKE., TAKE ANTIBIOTICS DIRECTED UNTIL GONE., SUGGEST FOLLOWING UP WITH THE YOUR ONCOLOGIST FOR PROGNOSIS AND MANAGEMENT Referrals: LUCIANO URENA MD (PCP) Time of Disposition: 12:38 I have reviewed the case, and I agree with, Diagnosis and Plan I performed the substantive portion of the visit. I have reviewed and personally made and approve the management plan that is documented in the notes by myself or the KATINA. I acknowledge full responsibility for the patient's management plan. WILLIAM WELDON NP Jun 23, 2024 10:24 JOSH ACEVEDO MD Jun 24, 2024 10:44
[2024-06-23] MEDS: 0.9%NACL 1000ML 1,000 ML IV ONE (11:08)
[2024-06-23 11:12] LABS: BASOPHILS # (AUTO) 0.05 K/uL (0.00-0.20); BASOPHILS % (AUTO) 0.8 % (0.0-5.0); EOSINOPHILS # (AUTO) 0.12 K/uL (0.00-0.70); EOSINOPHILS % (AUTO) 1.9 % (0.0-8.0); HEMATOCRIT 27.1 % (36-48); IMMATURE GRANULOCYTE ABSOLUTE 0.02 K/uL (0-1); LYMPHOCYTES # (AUTO) 1.1 K/uL (1.0-4.8); LYMPHOCYTES % (AUTO) 17.3 % (21.0-51.0); MEAN CORPUSCULAR HEMOGLOBIN 28.6 pg (27.0-33.0); MEAN CORPUSCULAR HGB CONC 29.2 g/dL (32.0-36.0); MEAN CORPUSCULAR VOLUME 98.2 fL (79-99); MONOCYTES # (AUTO) 0.5 K/uL (0.1-1.0); MONOCYTES % (AUTO) 7.7 % (3.0-13.0); NEUTROPHILS # (AUTO) 4.5 K/uL (1.8-7.7); PLATELET COUNT (AUTO) 203 K/uL (130-400); RED BLOOD CELL COUNT(AUTO) 2.76 MIL/uL (4.00-5.50); RED CELL DISTRIBUTION WIDTH 20.7 % (11.0-15.5); WHITE BLOOD COUNT (AUTO) 6.2 K/uL (4.8-10.8)
[2024-06-23 11:17] LABS: ADD UA MICROSCOPIC YES; APPEARANCE,URINE CLEAR (CLEAR); BILIRUBIN,URINE NEGATIVE (NEGATIVE); COLOR,URINE YELLOW (YELLOW); GLUCOSE, URINE (UA) NEGATIVE (NEGATIVE); KETONES,URINE 10 mg/dL (NEGATIVE); LEUKOCYTE ESTERASE ,URINE 25 Leu/uL (NEGATIVE); NITRATE,URINE NEGATIVE (NEGATIVE); OCCULT BLOOD,URINE SMALL (NEGATIVE); PROTEIN,URINE 50 mg/dL (NEGATIVE); UROBILINOGEN,URINE 0.2 mg/dL (0.2-1.0)
[2024-06-23 11:20] LABS: CREATININE 1.2 mg/dL (0.5-1.0); POTASSIUM 4.1 mmol/L (3.5-5.1)
[2024-06-23 11:23] LABS: BACTERIA,URINE RARE /HPF (None Seen); MUCUS,URINE RARE LPF (None Seen); SQUAMOUS EPITHELIAL CELL,UR RARE /HPF (0-2)
[2024-06-23] MEDS: cefTRIAXone 1G VIAL IVPB ONE (11:59)
[2024-06-23] MEDS ORDERED: NITR100C PO (12:55)
[2024-06-23 13:29] VITALS: BP 102/64; PULSE 99; RESP 12; TEMP 98.1; O2SAT 98
== END 2024-06-23 13:32 | disposition home or self-care (01) ==
LOC: EDH 10:11
DX: N39.0 Urinary tract infection, site not specified (principal); R62.7 Adult failure to thrive; I10 Essential (primary) hypertension; Z79.890 Hormone replacement therapy; Z98.51 Tubal ligation status
CPT/HCPCS: 99284; 96374; 96361; 80048; 83690; 85025; 87086; 81001; 36415; J7030; J0696; 51702

== ENCOUNTER 2024-07-02 08:45 | Emergency (ER) | payer MEDICARE, BC ==
[~2024-07-02] VITALS: Ht 160 cm; Wt 49.9 kg
[~2024-07-02 08:45] MED LIST changes: +NITR100C PO
--- NOTE | 2024-07-02 09:11 | NUR ---
BLADDER SCAN -606ML, ERMD MADE AWARE
--- NOTE | 2024-07-02 09:16 | ERN ---
General Chief Complaint: Blood in Urine: Stated Complaint: BLOOD IN URINE Time Seen by MD: 08:49 History of Present Illness Initial Comments 53-year-old female, history of right kidney cancer stage IV, being treated by Dr. Goodman, presents for hematuria with blood clots. Multiple episodes throughout the night. No fevers vomiting abdominal discomfort. She does feel the urge to urinate. No flank pain. No other symptoms. She was had this before in the past requiring a Calderon catheter. Allergies: Coded Allergies: No Known Drug Allergies (Unverified Allergy, Unknown, 04/06/22) Home Meds Active Scripts Nitrofurantoin Macrocrystal (Nitrofurantoin) 100 Mg Capsule, 1 CAP PO BID for 7 Days, #14 CAP 0 Refills Prov:WILLIAM WELDON STEAMBLASTER 06/23/24 Reported Medications Hydroxyzine HCl (Hydroxyzine HCl) 25 Mg Tablet, 1 TAB PO TID PRN for ITCHING 03/05/24 Levothyroxine Sodium (Levothyroxine Sodium) 150 Mcg Tablet, 1 TAB PO DAILY 03/05/24 Cyclobenzaprine HCl (Cyclobenzaprine HCl) 10 Mg Tablet, 1 TAB PO HSPRN PRN for MUSCLE SPASMS 03/05/24 Amlodipine Besylate (Amlodipine Besylate) 10 Mg Tablet, 1 TAB PO DAILY 03/05/24 Hydrocodone/Acetaminophen (Hydrocodon-Acetaminophen 5-325) 5 Mg-325 Mg Tablet, 1 TAB PO Q4HPRN PRN for PAIN 03/05/24 Past Medical History Past Medical History: Cancer, Hypertension, Other Medical History Other: HX OF RT KIDNEY CA, STG 4 CA Past Surgical History: None, BTL Surgical History Other: TUBAL LIGATION Family History Family History: Negative Social History Social History: Negative, Lives with family Female( History) History: Not Applicable ROS Dictation CONSTITUTIONAL: No chills, no fever, no weakness, no diaphoresis, no malaise. HEAD/FACE: No signs of trauma. EENT: No eye pain, no blurred vision, no tearing, no double vision, no ear pain, no ear discharge, no nose pain, no nasal congestion, no throat pain, no throat swelling, no mouth pain. RESPIRATORY: No cough, no orthopnea, no SOB, no stridor, no wheezing. CARDIOVASCULAR: No chest pain, no edema, no palpitations, no syncope. GASTROINTESTINAL/ABDOMINAL: No abdominal pain, no constipation, no diarrhea, no nausea, no vomiting. GENITOURINARY: Hematuria MUSCULOSKELETAL: No back pain, no gout, no joint pain, no joint swelling, no muscle pain, no muscle stiffness, no neck pain. INTEGUMENTARY: No change in color, no change in hair/nails, no dryness, no lesion, no lumps, no rash. NEUROLOGICAL/PSYCH: No anxiety, not depressed, no emotional problem, no headache, no numbness, no pre-existing deficit, no history of seizures, no tremors, no weakness. HEMATOLOGIC/LYMPHATIC: Not anemic, no history of blood clots, no apparent bleeding, no bruising, glands not swollen. All Systems Negative, Except as Noted. Physical Exam Physical Exam Dictation VITAL SIGNS: Reviewed. GENERAL APPEARANCE: Alert, oriented x3, frail and cachectic EYES: PERRL, pink conjunctivas, eyelid no trauma, anterior chamber clear. EARS: Pinnas intact and no signs of trauma or erythema. Ear canals clear and no discharge. TMs no erythema. NOSE: No discharge, no bleeding. OROPHARYNX: Mouth normal, teeth no caries, tongue pink. Pharynx clear, no erythema. Tonsils no exudates, no abscesses noted. Mucous membrane moist. NECK: Supple, non-tender, no thyromegaly, no masses, no JVD, no bruits. BREAST: Deferred. CHEST: No tenderness, no crepitus, no paradoxical movement, no retractions. LUNGS: Clear, well-ventilated, symmetric, no rales, no wheezing, no rhonchi, no stridor, good breath sounds bilaterally. HEART: Regular rate, regular rhythm, no murmur, no gallops. VASCULAR: No peripheral edema. ABDOMEN: Soft, positive bowel sounds, nondistended, no guarding, nontender, no rebound, no masses no hepatomegaly, no splenomegaly, no Luu's sign, no hernias. RECTAL: Deferred. GENITAL: Deferred. NEUROLOGICAL: Normal speech, gross motor function intact, gross sensory function intact. MUSCULOSKELETAL: Neck nontender, full range of motion, back nontender, full range of motion. EXTREMITIES: Nontender, full range of motion. SKIN: Color pink, dry, no turgor, no rash, no lacerations, no abrasions, no contusions. LYMPHATICS: Deferred. Results Laboratory and Microbiology Lab and Micro Result Laboratory Tests Test 07/02/24 09:38 07/02/24 11:20 White Blood Count 8.3 K/uL (4.8-10.8) Red Blood Count 2.62 MIL/uL (4.00-5.50) L Hemoglobin 7.5 g/dL (12.0-16.0) L Hematocrit 27.2 % (36-48) L Mean Corpuscular Volume 103.8 fL (79-99) H Mean Corpuscular Hemoglobin 28.6 pg (27.0-33.0) Mean Corpuscular Hemoglobin Concent 27.6 g/dL (32.0-36.0) L Red Cell Distribution Width 21.8 % (11.0-15.5) H Platelet Count 164 K/uL (130-400) Mean Platelet Volume 9.1 fL (7.5-10.5) Immature Granulocyte % (Auto) 0.4 % (0-1) Neutrophils (%) (Auto) 66.4 % (40.0-77.0) Lymphocytes (%) (Auto) 23.3 % (21.0-51.0) Monocytes (%) (Auto) 7.3 % (3.0-13.0) Eosinophils (%) (Auto) 1.9 % (0.0-8.0) Basophils (%) (Auto) 0.7 % (0.0-5.0) Neutrophils # (Auto) 5.5 K/uL (1.8-7.7) Lymphocytes # (Auto) 1.9 K/uL (1.0-4.8) Monocytes # (Auto) 0.6 K/uL (0.1-1.0) Eosinophils # (Auto) 0.16 K/uL (0.00-0.70) Basophils # (Auto) 0.06 K/uL (0.00-0.20) Absolute Immature Granulocyte (auto 0.03 K/uL (0-1) Nucleated Red Blood Cells 0.0 % (0.0-0.19) Red Blood Cell Morphology See comments Sodium Level 141 mmol/L (136-145) Potassium Level 3.6 mmol/L (3.5-5.1) Chloride Level 108 mmol/L (101-111) Carbon Dioxide Level 21 mmol/L (21-32) Blood Urea Nitrogen 32 mg/dL (7-18) H Creatinine 1.6 mg/dL (0.5-1.0) H Glomerular Filtration Rate Calc 38 mL/min (>90) Random Glucose 100 mg/dL (70-105) Total Calcium 10.4 mg/dL (8.5-10.1) H Urine Color BROWN (YELLOW) Urine Appearance CLOUDY (CLEAR) Urine pH 6.5 (5.0-8.0) Urine Specific [place] 1.020 (1.001-1.031) Urine Protein >=300 mg/dL (NEGATIVE) H Urine Glucose (UA) 100 mg/dL (NEGATIVE) H Urine Ketones 5 mg/dL (NEGATIVE) H Urine Occult Blood LARGE (NEGATIVE) H Urine Nitrate POSITIVE (NEGATIVE) H Urine Bilirubin NEGATIVE mg/dL (NEGATIVE) Urine Urobilinogen 2.0 mg/dL (0.2-1.0) H Urine Leukocyte Esterase SMALL Dorie/uL (NEGATIVE) H Urine RBC TNTC /HPF (0-1) H Urine WBC 11-25 /HPF (0-1) H Urine Squamous Epithelial Cells 6-10 /HPF (0-2) Urine Bacteria Moderate /HPF (None Seen) H MDM CC: Hematuria with blood clots Historian: Patient Comorbidities: Right kidney cancer stage IV, hypertension Limitations by social determinants of health: None Differential diagnosis: Hematuria, infection, urinary retention, kidney failure, other. Vital signs: Stable, remained stable in the ER. I had the RN perform a bladder scan, 600 cc in the bladder. We will place a Calderon. Calderon placed. CBC shows hemoglobin 7.5, macrocytic MCV of 103.8. I rechecked Recent labs, baseline for patient. BNP shows creatinine 1.6 BUN 32 also baseline for patient. Urinalysis does show nitrites occult blood RBCs and protein. Patient given a dose of Rocephin in the ER. We will DC with the antibiotics recommend PCP follow up. No signs of SIRS or sepsis. No signs of urinary retention after the Calderon was placed. ED Course Orders Procedure Category Date Status Time Cbc With Differential LAB 07/02/24 Complete : Basic Metabolic Panel LAB 07/02/24 Complete : Urinalysis Profile LAB 07/02/24 Complete : Bladder Scan CPOE 07/02/24 Transmitted 09:02 Culture Urine WALKER 07/02/24 Logged 11:50 Ceftriaxone 1g Vial PHA 07/02/24 Verified (Rocephine 1g Inj) 12:00 Vital Signs Date Time Temp Pulse Resp B/P (MAP) Pulse Ox O2 Delivery O2 Flow Rate FiO2 07/02/24 08:48 97.0 72 20 117/63 92 Room Air DX & DISP Disposition: Discharge Departure Impression: Primary Impression: UTI (urinary tract infection) Additional Impressions: Hematuria, Anemia, CKD (chronic kidney disease), Cancer of kidney Condition: Stable Scripts Cefpodoxime Proxetil (Cefpodoxime Proxetil) 200 Mg Tablet 1 TAB PO BID for 10 Days, #20 TAB 0 Refills Prov: MARCIANO VASQUEZ DO 07/02/24 Additional Instructions: You had some bleeding in the urinary tract. You had a Calderon placed here in the ER. Keep in the Calderon until you are evaluated by your oncologist or a urologist. Monitor for any significant clotting or retention. Also monitor for fevers, persistent vomiting, or significant pain. Return to the emergency department if this develops. The blood work does show anemia, and kidney disease. These are baseline for you. Otherwise your labs are unremarkable. You received a dose of IM Rocephin here in the ER. This is an antibiotic. I have prescribed cefpodoxime, which is an antibiotic. Please take as prescribed. Please contact your oncologist or a urologist for follow up. Return to the emergency department as needed. Referrals: LUCIANO URENA MD (PCP) MARCIANO VASQUEZ DO Jul 02, 2024 09:16
[2024-07-02 09:48] LABS: BASOPHILS # (AUTO) 0.06 K/uL (0.00-0.20); BASOPHILS % (AUTO) 0.7 % (0.0-5.0); EOSINOPHILS # (AUTO) 0.16 K/uL (0.00-0.70); EOSINOPHILS % (AUTO) 1.9 % (0.0-8.0); HEMATOCRIT 27.2 % (36-48); IMMATURE GRANULOCYTE ABSOLUTE 0.03 K/uL (0-1); LYMPHOCYTES # (AUTO) 1.9 K/uL (1.0-4.8); LYMPHOCYTES % (AUTO) 23.3 % (21.0-51.0); MEAN CORPUSCULAR HEMOGLOBIN 28.6 pg (27.0-33.0); MEAN CORPUSCULAR HGB CONC 27.6 g/dL (32.0-36.0); MEAN CORPUSCULAR VOLUME 103.8 fL (79-99); MONOCYTES # (AUTO) 0.6 K/uL (0.1-1.0); MONOCYTES % (AUTO) 7.3 % (3.0-13.0); NEUTROPHILS # (AUTO) 5.5 K/uL (1.8-7.7); NEUTROPHILS % (AUTO) 66.4 % (40.0-77.0); PLATELET COUNT (AUTO) 164 K/uL (130-400); RED BLOOD CELL COUNT(AUTO) 2.62 MIL/uL (4.00-5.50); RED CELL DISTRIBUTION WIDTH 21.8 % (11.0-15.5); WHITE BLOOD COUNT (AUTO) 8.3 K/uL (4.8-10.8)
[2024-07-02 09:53] LABS: CREATININE 1.6 mg/dL (0.5-1.0); POTASSIUM 3.6 mmol/L (3.5-5.1)
[2024-07-02 11:45] LABS: BILIRUBIN,URINE NEGATIVE (NEGATIVE); GLUCOSE, URINE (UA) 100 mg/dL (NEGATIVE); KETONES,URINE 5 mg/dL (NEGATIVE); LEUKOCYTE ESTERASE ,URINE SMALL Leu/uL (NEGATIVE); NITRATE,URINE POSITIVE (NEGATIVE); OCCULT BLOOD,URINE LARGE (NEGATIVE); PH,URINE 6.5 (5.0-8.0); PROTEIN,URINE >=300 mg/dL (NEGATIVE)
[2024-07-02 11:50] LABS: ADD UA MICROSCOPIC YES; APPEARANCE,URINE CLOUDY (CLEAR); COLOR,URINE BROWN (YELLOW)
[2024-07-02 11:51] LABS: BACTERIA,URINE Moderate /HPF (None Seen); RBC,URINE TNTC /HPF (0-1)
[2024-07-02] MEDS ORDERED: CEFP200T14 PO (11:58)
[2024-07-02 12:11] VITALS: BP 117/63; PULSE 72; RESP 20; TEMP 97; O2SAT 92
[2024-07-02] MEDS: cefTRIAXone 1G VIAL IM ONE (12:17)
== END 2024-07-02 12:31 | disposition home or self-care (01) ==
LOC: EDH 08:45
DX: N39.0 Urinary tract infection, site not specified (principal); R31.9 Hematuria, unspecified; D64.9 Anemia, unspecified; I12.9 Hypertensive chronic kidney disease with stage 1 through stage 4 chronic kidney disease, or unspecified chronic kidney disease; N18.9 Chronic kidney disease, unspecified; Z79.890 Hormone replacement therapy; Z85.528 Personal history of other malignant neoplasm of kidney; Z98.51 Tubal ligation status
CPT/HCPCS: 99284; 80048; 85025; 87086; 81001; 36415; 96372; J0696